=== PATIENT | female | born 1965 | race Caucasian/White ===

== ENCOUNTER 2019-11-16 08:52 | Day surgery (SDC) | payer MEDICAID ==
[~2019-11-16 08:52] MED LIST: Lactated Ringers 1,000 ML IV SCH; Lidocaine 1%/Sod Bicarbonate in NS 8.4% 1 ML Syringe IDERM PRN; Midazolam 1 MG/ML 2 ML SDV ONE; Propofol 200 MG/20 ML SDV ONE; Sodium Chloride 0.9% 10 ML Syringe FLUSH PRN
--- NOTE | 2019-11-16 10:07 | PCM.PREANE ---
Preanesthetic Assessment - Anesthesia/Transfusion/Family Hx Anesthesia History: Prior Anesthesia Without Reaction Family History of Anesthesia Reaction: No Transfusion History: No Prior Transfusion(s) - Review of Systems General: No Symptoms, Other (Perincious anemia) Pulmonary: No Symptoms Cardiovascular: No Symptoms Gastrointestinal: Other (s/p gastric bypass 2004, GERD) Neurological: No Symptoms Other: Reports: Depression - Physical Assessment NPO Status Date: 11/15/19 NPO Status Time: 23:30 Vital Signs: Last Vital Signs Temp 36.3 C 11/16/19 09:00 Pulse 55 L 11/16/19 09:00 Resp 16 11/16/19 09:00 BP 124/84 11/16/19 09:00 Pulse Ox 97 11/16/19 09:00 Height: 1.54 m Weight: 94.801 kg ASA Class: 2 Mental Status: Alert & Oriented x3 Airway Class: Mallampati = 2 Dentition: Reports: Normal Dentition Thyro-Mental Finger Breadths: 3 Mouth Opening Finger Breadths: 3 ROM/Head Extension: Full Lungs: Clear to Auscultation, Normal Respiratory Effort Cardiovascular: Regular Rate, Regular Rhythm - Allergies Allergies/Adverse Reactions: Allergies Allergy/AdvReac Type Severity Reaction Status Date / Time aspirin Allergy syncope/diz Verified 11/16/19 09:29 ziness - Blood Blood Available: No Product(s) Available: None - Anesthesia Plan Pre-Op Medication Ordered: None - Acknowledgements Anesthesia Type Planned: MAC Pt an Appropriate Candidate for the Planned Anesthesia: Yes Alternatives and Risks of Anesthesia Discussed w Pt/Guardian: Yes Pt/Guardian Understands and Agrees with Anesthesia Plan: Yes PreAnesthesia Questionnaire Other Hematologic History: history of pernicious anemia 2009 - Past Surgical History Other Musculoskeletal Surgeries/Procedures:: right elbow surgery, left achilles tendon repair - HOME MEDS Home Medications: Home Meds Calcium Carbonate [Calcium] 600 mg PO DAILY 10/31/15 [History] Escitalopram [Lexapro] 20 mg PO DAILY 10/31/15 [History] Lactobacillus Acidophilus [Acidophilus] 1 tab PO DAILY 10/31/15 [History] Loratadine [Claritin] 1 tab PO DAILY 10/31/15 [History] Omeprazole 20 mg PO DAILY 10/31/15 [History] Sennosides/Docusate Sodium [Stool Softener-Laxative] 2 tab PO DAILY 10/31/15 [ History] Vit B12/Intrins Fact/Fa Cmb #2 [Intrinsi [id number]] 1 tab PO DAILY 10/31/15 [ History] busPIRone [Buspar] 15 mg PO BID 10/31/15 [History] Mv-Min/Iron/Folic/Calcium/Vitk [Women's Multivitamin Tablet] 1 tab PO DAILY [History] - CURRENT (IN HOUSE) MEDS Current Meds: Current Medications Lactated Ringer's (Ringers, Lactated) 1,000 mls @ 125 mls/hr IV ASDIRECTED [facility]BY Stop: 11/16/19 23:00 Last Admin: 11/16/19 09:15 Dose: 125 mls/hr Lidocaine/Sodium Bicarbonate (Buffered Lidocaine 1% In Ns 8.4%) 0.25 ml IDERM ONETIME PRN PRN Reason: Prior to IV Start Stop: 11/16/19 18:00 Last Admin: 11/16/19 09:15 Dose: 0.25 ml Sodium Chloride (Saline Flush) 10 ml FLUSH ASDIRECTED PRN PRN Reason: Keep Vein Open Stop: 11/16/19 18:00 Discontinued Medications Midazolam HCl (Versed 1 Mg/Ml) Confirm Administered Dose 2 mg .ROUTE .STK-MED ONE Stop: 11/16/19 08:12 Propofol (Diprivan 20 Ml) Confirm Administered Dose 400 mg .ROUTE .STK-MED ONE Stop: 11/16/19 08:12
--- NOTE | 2019-11-16 11:00 | PCM48HPAN ---
Post Anesthesia Note - EVALUATION WITHIN 48HRS OF ANESTHETIC Vital Signs in Normal Range: Yes Patient Participated in Evaluation: Yes Respiratory Function Stable: Yes Airway Patent: Yes Cardiovascular Function Stable: Yes Hydration Status Stable: Yes Pain Control Satisfactory: Yes Nausea and Vomiting Control Satisfactory: Yes Mental Status Recovered: Yes Vital Signs: Last Vital Signs Temp 36.3 C 11/16/19 09:00 Pulse 55 L 11/16/19 09:00 Resp 16 11/16/19 09:00 BP 124/84 11/16/19 09:00 Pulse Ox 97 11/16/19 09:00
--- NOTE | 2019-11-16 12:06 | PROC ---
DATE OF OPERATION: 11/16/2019 SURGEON: Ninfa Sampson MD PREOPERATIVE DIAGNOSIS: Need for screening colonoscopy for high-risk patient. POSTOPERATIVE DIAGNOSES: Grade 2 internal hemorrhoids and colonic mucosal granularity. OPERATION PERFORMED: Colonoscopy with biopsy. ESTIMATED BLOOD LOSS: Minimal. COMPLICATIONS: None immediate. ANESTHESIA: Monitored anesthesia care. INDICATIONS AND CONSENT: The patient is a 54-year-old female who presented to my clinic for evaluation for colonoscopy. The patient had prior colonoscopy many years ago for hematochezia, but this has resolved. She did not have any abdominal pain, any change in bowel habits. I evaluated the patient for colonoscopy and she was a candidate for a screening colonoscopy. She had a brother who was diagnosed with colon cancer, unsure what age. Therefore, the patient is at elevated risk for colon cancer. Because of this, we proceeded with colonoscopy. Prior to going to colonoscopy, we discussed risks, benefits, and alternatives. Risks discussed including perforation and bleeding. The patient agreed to proceed with procedure. Informed consent was obtained. DESCRIPTION OF PROCEDURE: The patient was taken to the procedure room, placed in left lateral decubitus position following induction of monitored anesthesia care. A time-out was performed and then procedure was started. We started with doing a perianal exam. There was no lesions that were noted. Digital rectal exam was performed. Sphincter tone was normal. There was a hemorrhoidal complex in the left lateral anal position. Then, the colonoscope was inserted, advanced all the way to the cecum. The appendiceal orifice and the ileocecal valve were photographed. The prep was good. Then, carefully and methodically, the scope was withdrawn to visualize the entirety of the colonic wall. There was extensive granularity through the entirety of the colon from the cecum all the way to the rectum. This was more consistent with chronic stimulant laxative use, but there were no polyps or no other lesions. Because of this granularity, I took biopsies in the ascending colon with cold forceps for pathology examination. Then, on retroflexion, there was some grade 2 hemorrhoids, but there were no stigmata of bleeding. Then, at this point, air was suctioned out from the colon and the colonoscope was withdrawn. PLAN: Plan is for the patient to stop taking the stimulant laxative and try osmotic laxative and see if that will yield similar results. The patient will be discharged home today and the patient will follow up with primary care as needed. I recommended the patient to return for another colonoscopy in 5 years. MMANJALI /[id number]
[2019-11-16 14:00] VITALS: BP 143/78; PULSE 50
== END 2019-11-16 11:53 | disposition home or self-care (01) ==
LOC: JD.SDS 08:52
PROVIDERS: ATTEND Surgery
DX: Z12.11 Encounter for screening for malignant neoplasm of colon (principal); K64.1 Second degree hemorrhoids; K21.9 Gastro-esophageal reflux disease without esophagitis; K63.89 Other specified diseases of intestine; F32.9 Major depressive disorder, single episode, unspecified; E66.9 Obesity, unspecified; Z80.0 Family history of malignant neoplasm of digestive organs; Z98.84 Bariatric surgery status; Z79.899 Other long term (current) drug therapy; Z88.6 Allergy status to analgesic agent
CPT/HCPCS: 45380; J2250; J2704; J7120; 00812

== ENCOUNTER 2019-12-24 06:01 | Inpatient (IN) | payer MEDICAID ==
[~2019-12-24 06:01] MED LIST changes: -Midazolam 1 MG/ML 2 ML SDV ONE; -Propofol 200 MG/20 ML SDV ONE
[2019-12-24] MEDS ORDERED: oxyCODONE ER 10 MG TAB.ER PO SCH (06:15)
[2019-12-24] MEDS ORDERED: Acetaminophen 325 MG Tab PO SCH (06:15)
[2019-12-24] MEDS ORDERED: Pregabalin 25 MG Cap PO SCH (06:15)
--- NOTE | 2019-12-24 06:32 | PCM.PREANE ---
Preanesthetic Assessment - Procedure Proposed Procedure: Left TKR - Anesthesia/Transfusion/Family Hx Anesthesia History: Prior Anesthesia Without Reaction Transfusion History: Prior Transfusion Without Reaction - Review of Systems General: No Symptoms Pulmonary: No Symptoms Cardiovascular: No Symptoms Gastrointestinal: No Symptoms Neurological: No Symptoms Other: Reports: None - Physical Assessment ASA Class: 2 Mental Status: Alert & Oriented x3 Airway Class: Mallampati = 1 Dentition: Reports: Normal Dentition Thyro-Mental Finger Breadths: 3 Mouth Opening Finger Breadths: 4 ROM/Head Extension: Full Lungs: Clear to Auscultation, Normal Respiratory Effort Cardiovascular: Regular Rate, Regular Rhythm - Allergies Allergies/Adverse Reactions: Allergies Allergy/AdvReac Type Severity Reaction Status Date / Time aspirin Allergy syncope/diz Verified 12/23/19 15:04 ziness - Acknowledgements Anesthesia Type Planned: General Anesthesia, Spinal, Regional Block Pt an Appropriate Candidate for the Planned Anesthesia: Yes Alternatives and Risks of Anesthesia Discussed w Pt/Guardian: Yes Pt/Guardian Understands and Agrees with Anesthesia Plan: Yes PreAnesthesia Questionnaire Cardiovascular History: Reports: None Respiratory History: Reports: None Genitourinary History: Reports: None 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: Reports: Musculoskeletal History: Reports: Other (See Below) Other Musculoskeletal History: left knee meniscus tear Neurological History: Reports: None Psychiatric History: Reports: Depression Endocrine/Metabolic History: Reports: None Hematologic History: Reports: Anemia Other Hematologic History: history of pernicious anemia 2008 Immunologic History: Reports: None Oncologic (Cancer) History: Reports: None Dermatologic History: Reports: None - Past Surgical History Head Surgeries/Procedures: Reports: None HEENT Surgical History: Reports: Tonsillectomy Cardiovascular Surgical History: Reports: None Respiratory Surgical History: Reports: None GI Surgical History: Reports: Bariatric Procedure, Colonoscopy Female Surgical History: Reports: Section, Hysterectomy Male Surgical History: Reports: None Endocrine Surgical History: Reports: None Neurological Surgical History: Reports: None Other Musculoskeletal Surgeries/Procedures:: right elbow surgery, left achilles tendon repair, left meniscus repair x 2, bilateral carpal tunnel release Oncologic Surgical History: Reports: None Dermatological Surgical History: Reports: None - SUBSTANCE USE Smoking Status *Q: Never Smoker Second Hand Smoke Exposure: No Recreational Drug Use History: No - HOME MEDS Home Medications: Home Meds Calcium Carbonate [Calcium] 600 mg PO DAILY 10/31/15 [History] Escitalopram [Lexapro] 20 mg PO DAILY 10/31/15 [History] Lactobacillus Acidophilus [Acidophilus] 1 tab PO DAILY 10/31/15 [History] Loratadine [Claritin] 1 tab PO DAILY 10/31/15 [History] Omeprazole 20 mg PO DAILY 10/31/15 [History] busPIRone [Buspar] 15 mg PO BID 10/31/15 [History] Mv-Min/Iron/Folic/Calcium/Vitk [Women's Multivitamin Tablet] 1 tab PO DAILY [History] Cholecalciferol (Vitamin D3) [Vitamin D3] 5,000 unit PO DAILY 12/23/19 [History] Meloxicam 15 mg PO DAILY 12/23/19 [History] Vitamin B Complex [B Complex] 1 tab PO DAILY 12/23/19 [History] - CURRENT (IN HOUSE) MEDS Current Meds: Current Medications Acetaminophen (Tylenol) 975 mg PO ONETIME [facility] Stop: 12/24/19 12:15 Lactated Ringer's (Ringers, Lactated) 1,000 mls @ 125 mls/hr IV ASDIRECTED [facility] Lidocaine/Sodium Bicarbonate (Buffered Lidocaine 1% In Ns 8.4%) 0.25 ml IDERM ONETIME PRN PRN Reason: Prior to IV Start Oxycodone HCl (Oxycontin) 10 mg PO ONETIME [facility] Stop: 12/24/19 12:15 Pregabalin (Lyrica) 50 mg PO ONETIME [facility] Stop: 12/24/19 12:15 Sodium Chloride (Saline Flush) 10 ml FLUSH ASDIRECTED PRN PRN Reason: Keep Vein Open Discontinued Medications Bupivacaine HCl (Sensorcaine-Mpf 0.25%) Confirm Administered Dose 30 ml .ROUTE .STK-MED ONE Stop: 12/24/19 06:15 Cefazolin Sodium (Ancef) Confirm Administered Dose 2 gm .ROUTE .STK-MED ONE Stop: 12/24/19 06:15 Iodine (Iodine 2% Mild Tincture) Confirm Administered Dose 30 ml .ROUTE .STK- MED ONE Stop: 12/24/19 06:15 Tranexamic Acid (Cyklokapron) Confirm Administered Dose 1,000 mg .ROUTE .STK- MED ONE Stop: 12/24/19 06:15 Vancomycin HCl (Vancomycin) Confirm Administered Dose 1 gm .ROUTE .STKidizen-Lien Enforcement ONE Stop: 12/24/19 06:15
[2019-12-24] MEDS ORDERED: Propofol 200 MG/20 ML SDV ONE (06:39)
[2019-12-24] MEDS ORDERED: fentaNYL 100 MCG/2 ML SDV ONE (06:39)
[2019-12-24] MEDS ORDERED: Midazolam 1 MG/ML 2 ML SDV ONE (06:39)
[2019-12-24] MEDS ORDERED: Lidocaine 1% 4 ML ONE (06:41)
[2019-12-24] MEDS ORDERED: Ondansetron 4 MG/2 ML SDV IVPUSH PRN (06:50)
[2019-12-24] MEDS ORDERED: Cyclobenzaprine 10 MG Tab PO PRN (06:50)
[2019-12-24] MEDS ORDERED: Naloxone 0.4 MG/ML SDV IVPUSH PRN (06:50)
[2019-12-24] MEDS ORDERED: Morphine 2 MG/ML Syringe IVPUSH PRN (06:50)
[2019-12-24] MEDS ORDERED: ceFAZolin 1 GM Vial ONE (07:18)
[2019-12-24] MEDS ORDERED: ePHEDrine/Normal Saline 25 MG/5 ML Syringe ONE (07:22)
[2019-12-24] MEDS: ceFAZolin 1 GM Vial ONE ×2 (07:24→08:10)
[2019-12-24] MEDS: Bupivacaine 0.25% 10 ML SDV ONE ×2 (07:24→08:15)
[2019-12-24] MEDS: Iodine/Sodium Iodide 2% Tincture 30 ML Bottle ONE ×2 (07:25→08:09)
[2019-12-24] MEDS ORDERED: Lactated Ringers 1,000 ML ONE (07:27)
[2019-12-24] MEDS: Morphine 8 MG, EPINEPHrine 0.3 MG, Cefuroxime 750 MG, Ketorolac 30 MG, Sodium Chloride ... PRN ×10 (07:27→08:14)
[2019-12-24] MEDS: Vancomycin 1 GM SDV ONE ×2 (07:29→08:18)
[2019-12-24] MEDS ORDERED: Ropivacaine 0.5% 5 MG/ML 30 ML SDV ONE (08:59)
[2019-12-24] MEDS ORDERED: Ketorolac 15 MG/ML SDV IVPUSH PRN (10:30)
--- NOTE | 2019-12-24 10:51 | CR ---
Left knee: AP and lateral views left knee were obtained. Comparison: Previous left knee study of 07/11/18. Left knee prosthesis is noted. Components are aligned. Underlying bony structures are intact. Soft tissue air is noted from the surgical procedure. Impression: 1. Satisfactory postop radiographic appearance of recently placed left knee prosthesis. Diagnostic code #2 This report was dictated in [place] Standard Time
--- NOTE | 2019-12-24 11:05 | PCM.OPNOTE ---
- General Post-Op/Procedure Note Date of Surgery/Procedure: 12/24/19 Operative Procedure(s): left total knee arthroplasty Pre Op Diagnosis: left knee osteoarthrosis Post-Op Diagnosis: Same Anesthesia Technique: Local, MAC, Spinal Primary Surgeon: Juancarlos Philippe Anesthesia Provider: Surinder Babcock Material Movers: Gisselle De Luna Material Movers: Debora Graham in mLs: 5 Complications: None Condition: Good Free Text/Narrative:: 4 femur 3 tibia 9mm 29x9
[2019-12-24] MEDS: Acetaminophen/oxyCODONE 325-5 MG Tab PO PRN ×3 (11:11→20:12)
--- NOTE | 2019-12-24 11:35 | OR ---
DATE OF OPERATION: 12/24/2019 SURGEON: Juancarlos Philippe MD OPERATION PERFORMED: Left total knee arthroplasty. PREOPERATIVE DIAGNOSIS: Left knee osteoarthrosis. POSTOPERATIVE DIAGNOSIS: Left knee osteoarthrosis. ANESTHESIA: Local MAC with spinal. ANESTHESIA PROVIDER: Rick Vallecillo. SNOWSPORT INSTRUCTOR: Gisselle De Luna PA-C, and Debora Graham LPN. ESTIMATED BLOOD LOSS: 5 mL. COMPLICATIONS: None. CONDITION: Stable. IMPLANTS: 1. Burdett size 4 cemented PS femur. 2. Maegan size 3 cemented universal tibial base plate. 3. Burdett size 3 9 mm PS X3 polyethylene insert. 4. Maegan size 29 x 9 mm cemented asymmetric patella. DESCRIPTION OF PROCEDURE: The patient was identified in the preop holding area. Proper site was marked and identified by the surgeon. The patient was taken back to the operating theater. After adequate anesthesia, the patient's left lower extremity had a nonsterile tourniquet applied and it was sterilely prepped and draped in the usual sterile fashion. OR time-out was performed. The patient received 2 g IV Ancef. At this time, the left lower extremity was exsanguinated. Tourniquet was insufflated to 300 mmHg. Standard medial parapatellar incision was made. Medial parapatellar arthrotomy was created. Deep fibers of the MCL were raised and anterior fat pad was resected. At this time, attention was turned to the patella. Patella measured 22, it was resected to a 13 for a 29 x 9 mm patella. Drill holes were then drilled and found to be in adequate position. The drill was then drilled in the distal femur and the intramedullary distal femoral cutting guide was then placed. 8 mm was resected off the distal femur and was found to be an adequate resection. Sizing guide was placed. It was found to be a size 4 cemented PS femur that was shown on the implant record at the beginning of this dictation. The drill holes were drilled for the epicondylar axis using Whitesides line and epicondyles as reference. At this time, the 4-in-1 cutting block was placed. An anterior posterior and anterior and posterior chamfer cuts were then completed. Box cut was completed at this time. Attention was turned to the tibia. The posterior medial lateral retractors were placed. The extramedullary tibial guide was placed. It was placed in the old footprint of the ACL. It was aligned with the center of the ankle and 0 degrees of slope, 9 mm was then resected off the unaffected side. There was found to be an acceptable reduction. At this time, posterior osteophytes were removed along with medial and lateral meniscus. A trial implant was placed with a correct sized tibia that was mentioned at the beginning of the dictation. A Maegan size 3 9 mm PS X3 polyethylene insert was then placed. The patient's knee was brought through range of motion. The patella was tracking centrally and was stable to varus and valgus stress. Alignment was found to be roughly at 0 degrees. The tibia was stamped and drilled in proper rotation. The universal tibial base plate was impacted in place. Next, the Maegan size 4 cemented PS femur impacted into place and the Maegan size 3 9 mm PS X3 polyethylene insert was placed. The patient's knee was brought into full extension. The patella was then cemented in place at this time. One liter dilute Betadine solution was irrigated through the knee along with 3 L of pulse lavage irrigation with Ancef. Periarticular injection was then completed. The patient's knee was brought through a range of motion. Once the cement had time to set up and it was found to be stable to varus valgus stress, the patella was tracking centrally with full range of motion. At this time, a #2 barbed suture was used for closure of the medial parapatellar arthrotomy. Topical tranexamic acid was placed. 2-0 Vicryl was used subcutaneously, Prineo was used for the skin. The patient tolerated the procedure well and was sent to the PACU in stable condition. MMODAL /[id number] NAYA
[2019-12-24] MEDS: ceFAZolin 2 GM in Premix Bag 1 BAG IV SCH ×2 (14:24→21:28)
[2019-12-24] MEDS ORDERED: Lactated Ringers 1,000 ML IV ONE (15:23)
--- NOTE | 2019-12-24 15:25 | PCM.CONS ---
H&P History of Present Illness - General Date of Service: 12/24/19 Admit Problem/Dx: Admission Diagnosis/Problem Admission Diagnosis/Problem Osteoarthritis of knee Source of Information: Patient, Old Records, Provider, RN, RN Notes Reviewed History Limitations: Reports: No Limitations - History of Present Illness Initial Comments - Free Text/Narative: Alicia Bains is a 54 yo female patient of Dr. Philippe who is post-operative day 0 of left TKA. Hospital medicine was consulted for post-operative medical care of post-operative hypotension. At this time she is resting in bed. Pain is controlled. She did report some dizziness, nausea, and lightheadedness when standing up to working with therapies and was noted to be hypotensive. She states this was nearly a syncopal episode. She denies any current chest pain, shortness of breath, palpitations, nausea, or vomiting. She carries a history of : HLD, pernicious anemia, obesity, gastric bypass in 2004, depression. She was never a smoker. She is a full code. Her primary care provider is Dr. Florez. 2 Pain Score (Numeric/FACES): 2 - Related Data Allergies/Adverse Reactions: Allergies Allergy/AdvReac Type Severity Reaction Status Date / Time aspirin Allergy syncope/diz Verified 12/24/19 10:50 ziness Home Medications: Home Meds Calcium Carbonate [Calcium] 600 mg PO DAILY 10/31/15 [History] Escitalopram [Lexapro] 20 mg PO DAILY 10/31/15 [History] Lactobacillus Acidophilus [Acidophilus] 1 tab PO DAILY 10/31/15 [History] Loratadine [Claritin] 1 tab PO DAILY 10/31/15 [History] Omeprazole 20 mg PO DAILY 10/31/15 [History] busPIRone [Buspar] 15 mg PO BID 10/31/15 [History] Mv-Min/Iron/Folic/Calcium/Vitk [Women's Multivitamin Tablet] 1 tab PO DAILY [History] Cholecalciferol (Vitamin D3) [Vitamin D3] 5,000 unit PO DAILY 12/23/19 [History] Meloxicam 15 mg PO DAILY 12/23/19 [History] Vitamin B Complex [B Complex] 1 tab PO DAILY 12/23/19 [History] Past Medical History Cardiovascular History: Reports: None Respiratory History: Reports: None Genitourinary History: Reports: None [employer] FILLING History: Reports: Musculoskeletal History: Reports: Other (See Below) Other Musculoskeletal History: left knee meniscus tear Neurological History: Reports: None Psychiatric History: Reports: Depression Endocrine/Metabolic History: Reports: None Hematologic History: Reports: Anemia Other Hematologic History: history of pernicious anemia 2008 Immunologic History: Reports: None Oncologic (Cancer) History: Reports: None Dermatologic History: Reports: None - Past Surgical History Head Surgeries/Procedures: Reports: None HEENT Surgical History: Reports: Tonsillectomy Cardiovascular Surgical History: Reports: None Respiratory Surgical History: Reports: None GI Surgical History: Reports: Bariatric Procedure, Colonoscopy Female Surgical History: Reports: Section, Hysterectomy Endocrine Surgical History: Reports: None Neurological Surgical History: Reports: None Other Musculoskeletal Surgeries/Procedures:: right elbow surgery, left achilles tendon repair, left meniscus repair x 2, bilateral carpal tunnel release Oncologic Surgical History: Reports: None Dermatological Surgical History: Reports: None Social & Family History - Tobacco Use Smoking Status *Q: Never Smoker Second Hand Smoke Exposure: No - Caffeine Use Caffeine Use: Reports: None - Recreational Drug Use Recreational Drug Use: No H&P Review of Systems - Review of Systems: Review Of Systems: See Below General: Reports: No Symptoms. Denies: Fever, Chills HEENT: Reports: No Symptoms. Denies: Headaches, Sore Throat Pulmonary: Reports: No Symptoms. Denies: Shortness of Breath, Wheezing, Cough, Sputum Cardiovascular: Reports: No Symptoms. Denies: Chest Pain, Palpitations, Edema, Lightheadedness (earlier, none now ) Gastrointestinal: Reports: No Symptoms. Denies: Abdominal Pain, Constipation, Diarrhea, Nausea (none currently ), Vomiting Genitourinary: Reports: No Symptoms. Denies: Pain Musculoskeletal: Reports: Leg Pain Skin: Reports: No Symptoms. Denies: Cyanosis Psychiatric: Reports: No Symptoms. Denies: Confusion Neurological: Reports: Difficulty Walking, Gait Disturbance. Denies: Pre- Existing Deficit, Syncope (near syncope earlier) Hematologic/Lymphatic: Reports: No Symptoms Immunologic: Reports: No Symptoms Exam - Exam Exam: See Below - Vital Signs Vital Signs: Last Vital Signs Temp 97.2 F 12/24/19 09:53 Pulse 75 12/24/19 14:01 Resp 16 12/24/19 09:53 BP 106/49 L 12/24/19 14:16 Pulse Ox 99 12/24/19 14:01 Weight: 206 lb - Exam Quality Assessment: DVT Prophylaxis. No: Supplemental Oxygen, Urinary Catheter General: Alert, Oriented, Cooperative. No: Mild Distress HEENT: Conjunctiva Clear, EACs Clear, Hearing Intact, Mucosa Moist & [place], Nares Patent, Posterior Pharynx Clear, PERRLA Neck: Supple, Trachea Midline Lungs: Clear to Auscultation, Normal Respiratory Effort Cardiovascular: Regular Rhythm, Bradycardia (Chronic ) GI/Abdominal Exam: Normal Bowel Sounds, Soft, Non-Tender, No Distention, No Abnormal Bruit (Female) Exam: Deferred Rectal (Female) Exam: Deferred Back Exam: Normal Inspection, Full Range of Motion Extremities: Normal Capillary Refill, Leg Pain, Limited Range of Motion, Other ( Bandage in place on left leg. Bandage is dry and intact. Cooling pack in place.) Skin: Warm, Dry, Intact Neurological: Cranial Nerves Intact (grossly ) Neuro Extensive - Mental Status: Alert, Oriented x3, Normal Mood/Affect Sepsis Event Note - Evaluation Sepsis Screening Result: No Definite Risk - Focused Exam Vital Signs: Vital Signs Temp Temp Pulse Pulse Resp BP BP 12/24/19 14:16 106/49 L 12/24/19 14:01 75 99/54 L 12/24/19 13:47 54 L 98/54 L 12/24/19 13:32 54 L 101/57 L 12/24/19 13:16 54 L 93/53 L 12/24/19 13:01 55 L 94/55 L 12/24/19 12:47 60 99/53 L 12/24/19 12:32 63 112/61 12/24/19 12:17 60 100/68 12/24/19 12:01 57 L 108/64 12/24/19 11:47 59 L 104/60 12/24/19 11:32 58 L 103/63 12/24/19 11:01 56 L 103/67 12/24/19 10:55 56 L 102/57 L 12/24/19 10:40 12/24/19 09:53 97.2 F 63 16 99/63 12/24/19 09:44 97.9 F 10 L 102/59 L 12/24/19 09:30 10 L 105/56 L 12/24/19 09:15 12 108/60 12/24/19 09:00 10 L 102/60 12/24/19 08:51 98.2 F 16 101/62 12/24/19 07:13 97.9 F 64 16 120/54 L Pulse Ox Pulse Ox 12/24/19 14:16 12/24/19 14:01 99 12/24/19 13:47 99 12/24/19 13:32 98 12/24/19 13:16 99 12/24/19 13:01 98 12/24/19 12:47 78 L 12/24/19 12:32 92 L 12/24/19 12:17 98 12/24/19 12:01 97 12/24/19 11:47 95 12/24/19 11:32 100 12/24/19 11:01 98 12/24/19 10:55 96 12/24/19 10:40 95 12/24/19 09:53 99 12/24/19 09:44 92 L 12/24/19 09:30 93 L 12/24/19 09:15 95 12/24/19 09:00 99 12/24/19 08:51 97 97 12/24/19 07:13 93 L Date Exam was Performed: 12/24/19 Time Exam was Performed: 15:49 Consult PN Assessment/Plan POD#: 0 Procedures: Procedures COLONOSCOPY AND BIOPSY (11/16/19) ELECTROCARDIOGRAM TRACING (11/01/15) EMERGENCY DEPT VISIT (06/29/18) KNEE ARTHROSCOPY/SURGERY (11/01/15) KNEE ARTHROSCOPY/SURGERY (11/01/15) MEDICAL NUTRITION INDIV IN (09/10/19) MR-STAPH DNA AMP PROBE (12/09/19) MRI JNT OF LWR EXTRE W/O DYE (07/18/15) PHYSICAL PERFORMANCE TEST (02/28/16) PT EVALUATION (01/26/16) WORK HARDENING (02/21/16) X-RAY EXAM KNEE 4 OR MORE (06/29/18) X-RAY EXAM OF KNEE 3 (07/27/15) X-RAY EXAM OF KNEES (07/11/18) (1) S/P total knee arthroplasty SNOMED Code(s): 5769655130748, 167893649, 2305280232626 Code(s): Z96.659 - PRESENCE OF UNSPECIFIED ARTIFICIAL KNEE JOINT Priority: High Current Visit: Yes Qualifiers: Laterality: left Qualified Code(s): Z96.652 - Presence of left artificial knee joint (2) Osteoarthritis SNOMED Code(s): 578675180 Code(s): M19.90 - UNSPECIFIED OSTEOARTHRITIS, UNSPECIFIED SITE Priority: High Current Visit: Yes Qualifiers: Osteoarthritis location: knee Osteoarthritis type: primary Laterality: left Qualified Code(s): M17.12 - Unilateral primary osteoarthritis, left knee (3) HLD (hyperlipidemia) SNOMED Code(s): 32958442 Code(s): E78.5 - HYPERLIPIDEMIA, UNSPECIFIED Priority: Low Current Visit : No Qualifiers: Hyperlipidemia type: unspecified Qualified Code(s): E78.5 - Hyperlipidemia , unspecified (4) Pernicious anemia SNOMED Code(s): 16115067 Code(s): D51.0 - VITAMIN B12 DEFIC ANEMIA DUE TO INTRINSIC FACTOR DEFICIENCY Priority: Medium Current Visit: No (5) Obesity SNOMED Code(s): 619398145, 704748369 Code(s): E66.9 - OBESITY, UNSPECIFIED Priority: Medium Current Visit: No Qualifiers: Obesity type: unspecified obesity type Obesity classification: adult class 3 (BMI >= 40) Serious obesity comorbidity presence: unspecified whether serious comorbidity present Body mass index: BMI 40.0-44.9 Qualified Code(s) : E66.01 - Morbid (severe) obesity due to excess calories; Z68.41 - Body mass index (BMI) 40.0-44.9, adult (6) Status post gastric surgery SNOMED Code(s): 679243893 Code(s): Z98.890 - OTHER SPECIFIED POSTPROCEDURAL STATES Priority: Medium Current Visit: No (7) Depression SNOMED Code(s): 85916426 Code(s): F32.9 - MAJOR DEPRESSIVE DISORDER, SINGLE EPISODE, UNSPECIFIED Priority: Low Current Visit: No Qualifiers: Depression Type: other depression Qualified Code(s): F32.89 - Other specified depressive episodes (8) Postoperative hypotension SNOMED Code(s): 260966747 Code(s): I95.89 - OTHER HYPOTENSION Priority: High Current Visit: Yes (9) Bradycardia SNOMED Code(s): 10266108 Code(s): R00.1 - BRADYCARDIA, UNSPECIFIED Priority: Medium Current Visit : Yes Problem List Initiated/Reviewed/Updated: Yes My Orders Last 24 Hours: My Active Orders 12/24/19 15:22 Patient Status [ADT] Routine 12/24/19 15:23 Lactated Ringers [Ringers, Lactated] 1,000 ml IV .BOLUS Plan: I/P: Acute: S/P left total knee arthroplasty - post-operative day 0 -DVT prophylaxis and pain management per primary care team -PT/OT -IS/RT -Monitor oxygen saturation -Titrate oxygen as needed -Home medications reviewed -Vital signs stable -Monitor labs -Pre-operative Hgb was 13.1 -Pre-operative GFR was 78 -Pre-operative BUN was 24 -Pre-operative EKG showed sinus bradycardia at 56 BPM Osteoarthritis of left knee -Pain management per primary care team Post-operative hypotension -BP noted to be 93/53 after working with therapies -Symptomatic - lightheaded, dizzy, nauseated, reports near syncope -History of bradycardia -IV fluids as ordered -EBL 5ml -Nursing to monitor vital signs and check orthostatics after fluid bolus. Chronic: HLD pernicious anemia obesity gastric bypass in 2004 depression Plan: Telemetry CM for discharge planning GI prophylaxis Home medications as indicated Other orders as listed above Routine AM labs She is a full code. Her PCP is Dr. Florez Thank you for allowing us to participate in the care of this patient!! Requesting Provider: Dr. Philippe Date Consult Requested: 12/24/19 Reason for Consult: Post-oepratie hypotension Patient History Reviewed: Yes Admission H&P Reviewed: Yes Notified Requestor: Yes
--- NOTE | 2019-12-24 15:32 | PCM.SN ---
- Free Text/Narrative Note: Left selective femoral nerve block at the adductor canal for post-procedure pain control under US guidance requested by Dr. Philippe. Time Out: 902 Start: 902 End: 910 Chart reviewed. Consent signed. Questions answered. Appropriate monitors applied. Time out performed. Left mid-shaft femur identified with ultrasound, scanning medially of femur, the femoral artery in the adductor canal visualized , and the femoral nerve located laterally to the artery. The skin was prepped lateral to the ultrasound probe with chlorahexadine times two. The 21ga 4 insulated block needle was inserted under direct ultrasound guidance into the adductor canal. 25mL of 0.5% ropivacaine with 1:200,000 epinephrine was injected circumferentially around the nerve with intermittent negative aspiration noted. Patient tolerated the procedure well. Sterile technique noted along with sterile gloves, mask, and sterile probe cover. See picture on progress note and vital signs on nurses notes. Block completed in PACU. Surinder Babcock CRNA
[2019-12-24] MEDS ORDERED: Magnesium Hydroxide 400 MG/5 ML Susp 30 ML Cup PO PRN (21:00)
[2019-12-24] MEDS ORDERED: Sennosides 8.6 MG Tab PO PRN (21:00)
[2019-12-24] MEDS ORDERED: Famotidine 20 MG Tab PO SCH (21:00)
[2019-12-24] MEDS: Docusate Sodium 100 MG Cap PO SCH (21:24)
[2019-12-24] MEDS: busPIRone 15 MG Tab PO SCH (21:24)
[2019-12-25] MEDS: Acetaminophen/oxyCODONE 325-5 MG Tab PO PRN ×3 (02:38→13:11)
[2019-12-25] MEDS: ceFAZolin 2 GM in Premix Bag 1 BAG IV SCH (06:26)
--- NOTE | 2019-12-25 06:48 | PCM.CONSN ---
- General Info Date of Service: 12/25/19 Admission Dx/Problem (Free Text): Admission Diagnosis/Problem Admission Diagnosis/Problem Osteoarthritis of knee Functional Status: Reports: Pain Controlled, Tolerating Diet, Ambulating, Urinating, Incentive Spirometry. Denies: New Symptoms - Review of Systems General: Reports: No Symptoms. Denies: Fever, Chills HEENT: Reports: No Symptoms. Denies: Headaches, Sore Throat Pulmonary: Reports: No Symptoms. Denies: Shortness of Breath, Pleuritic Chest Pain, Cough, Wheezing Cardiovascular: Reports: No Symptoms. Denies: Chest Pain, Palpitations, Edema, Lightheadedness Gastrointestinal: Reports: No Symptoms. Denies: Abdominal Pain, Constipation, Diarrhea, Nausea, Vomiting Genitourinary: Reports: No Symptoms. Denies: Pain Musculoskeletal: Reports: Leg Pain Skin: Reports: No Symptoms. Denies: Cyanosis Neurological: Reports: Difficulty Walking, Gait Disturbance. Denies: Confusion , Pre-Existing Deficit Psychiatric: Reports: No Symptoms - Patient Data Vitals - Most Recent: Last Vital Signs Temp 97.2 F 12/25/19 02:49 Pulse 54 L 12/25/19 02:49 Resp 16 12/25/19 02:49 BP 92/47 L 12/25/19 02:49 Pulse Ox 84 L 12/25/19 02:49 Orthostatic Blood Pressure [ 78/61 Standing] Orthostatic Blood Pressure [ 102/56 Sitting] Orthostatic Blood Pressure [ 111/60 Supine] Weight - Most Recent: 217 lb I&O - Last 24 Hours: Intake & Output 12/24/19 12/24/19 12/25/19 14:59 22:59 06:59 Intake Total 850 Output Total 1600 Balance -750 Lab Results Last 24 Hours: Laboratory Results - last 24 hr 12/25/19 12/25/19 Range/Units 05:00 05:00 WBC 5.71 (3.98-10.04) K/mm3 RBC 3.60 L (3.98-5.22) M/mm3 Hgb 10.6 L (11.2-15.7) gm/dl Hct 32.9 L (34.1-44.9) % MCV 91.4 (79.4-94.8) fl MCH 29.4 (25.6-32.2) pg MCHC 32.2 (32.2-35.5) g/dl RDW Std Deviation 42.6 (36.4-46.3) fL Plt Count 183 (182-369) K/mm3 MPV 11.0 (9.4-12.3) fl Sodium 139 (136-145) mEq/L Potassium 4.1 (3.5-5.1) mEq/L Chloride 105 (98-107) mEq/L Carbon Dioxide 28 (21-32) mEq/L Anion Gap 10.1 (5-15) BUN 17 (7-18) mg/dL Creatinine 0.6 (0.55-1.02) mg/dL Est Cr Clr Drug Dosing 76.10 mL/min Estimated GFR (MDRD) > 60 (>60) mL/min BUN/Creatinine Ratio 28.3 H (14-18) Glucose 101 (74-106) mg/dL Calcium 8.7 (8.5-10.1) mg/dL Total Bilirubin 0.7 (0.2-1.0) mg/dL AST 66 H (15-37) U/L ALT 62 H (14-59) U/L Alkaline Phosphatase 69 (46-116) U/L Total Protein 5.8 L (6.4-8.2) g/dl Albumin 3.1 L (3.4-5.0) g/dl Globulin 2.7 gm/dL Albumin/Globulin Ratio 1.2 (1-2) Med Orders - Current: Current Medications Bisacodyl (Dulcolax) 5 mg PO DAILY PRN PRN Reason: Constipation Buspirone HCl (Buspar) 15 mg PO BID [facility] Last Admin: 12/24/19 21:24 Dose: 15 mg Calcium Carbonate/Glycine (Calcium Carbonate) 600 mg PO DAILY [facility] Cholecalciferol (Vitamin D3) 5,000 unit PO DAILY [facility] Citalopram Hydrobromide (Celexa) 40 mg PO DAILY [facility] Cyclobenzaprine HCl (Flexeril) 10 mg PO TID PRN PRN Reason: Spasms Last Admin: 12/24/19 14:31 Dose: 10 mg Docusate Sodium (Colace) 100 mg PO BID [facility] Last Admin: 12/24/19 21:24 Dose: 100 mg Cefazolin Sodium/Dextrose 2 gm (/ Premix) 50 mls @ 100 mls/hr IV Q8H [facility] Stop: 12/25/19 06:59 Last Admin: 12/25/19 06:26 Dose: 100 mls/hr Ketorolac Tromethamine (Toradol) 15 mg IVPUSH Q6H PRN PRN Reason: Pain Last Admin: 12/24/19 22:45 Dose: 15 mg Loratadine (Claritin) 10 mg PO DAILY [facility] Magnesium Hydroxide (Milk Of Magnesia) 30 ml PO BID PRN PRN Reason: Constipation Morphine Sulfate (Morphine) 2 mg IVPUSH Q2H PRN PRN Reason: Breakthrough Pain Naloxone HCl (Narcan) 0.1 mg IVPUSH Q5M PRN PRN Reason: Oversedation Ondansetron HCl (Zofran) 4 mg IVPUSH Q6H PRN PRN Reason: Nausea/Vomiting Oxycodone/Acetaminophen (Percocet 325-5 Mg) 1 - 2 tab PO Q4H PRN PRN Reason: Pain Last Admin: 12/25/19 02:38 Dose: 2 tab Pantoprazole Sodium (Protonix) 40 mg PO DAILY [facility] Rivaroxaban (Xarelto) 10 mg PO DAILY [facility] Saccharomyces Boulardii (Florastor) 250 mg PO DAILY [facility] Senna (Senna) 8.6 mg PO BID PRN PRN Reason: Constipation Vitamin B Complex/Vitamin C (Super B With Vitamin C) 1 cap PO DAILY [facility] Discontinued Medications Acetaminophen (Tylenol) 975 mg PO ONETIME [facility] Stop: 12/24/19 12:15 Last Admin: 12/24/19 06:33 Dose: 975 mg Bupivacaine HCl (Sensorcaine-Mpf 0.25%) Confirm Administered Dose 30 ml .ROUTE .STK-MED ONE Stop: 12/24/19 06:15 Last Admin: 12/24/19 08:15 Dose: 30 ml Cefazolin Sodium (Ancef) Confirm Administered Dose 2 gm .ROUTE .STK-MED ONE Stop: 12/24/19 06:15 Last Admin: 12/24/19 08:10 Dose: 2 gm Cefazolin Sodium (Ancef) Confirm Administered Dose 2 gm .ROUTE .STK-MED ONE Stop: 12/24/19 07:19 Morphine Sulfate 8 mg/Epinephrine HCl 0.3 mg/Cefuroxime Sodium 750 mg/Ketorolac Tromethamine 30 mg/Sodium Chloride 27.9 ml 0 mg .XX ASDIRECTED PRN PRN Reason: Other Stop: 12/24/19 12:00 Last Admin: 12/24/19 08:14 Dose: 788.3 mg Ephedrine Sulfate (Ephedrine In Ns) Confirm Administered Dose 25 mg .ROUTE .STK- MED ONE Stop: 12/24/19 07:23 Famotidine (Pepcid) 20 mg PO Q12H [facility] Fentanyl (Sublimaze) Confirm Administered Dose 100 mcg .ROUTE .STK-MED ONE Stop: 12/24/19 06:40 Lactated Ringer's (Ringers, Lactated) 1,000 mls @ 125 mls/hr IV ASDIRECTED [facility]BY Stop: 12/24/19 23:00 Last Admin: 12/24/19 06:34 Dose: 125 mls/hr Lidocaine HCl (Xylocaine-Mpf 1%) Confirm Administered Dose 4 mls @ as directed .ROUTE .STK-MED ONE Stop: 12/24/19 06:42 Lactated Ringer's (Ringers, Lactated) Confirm Administered Dose 1,000 mls @ as directed .ROUTE .STK-MED ONE Stop: 12/24/19 07:28 Lactated Ringer's (Ringers, Lactated) 1,000 mls @ 999 mls/hr IV .BOLUS ONE Stop: 12/24/19 16:23 Last Admin: 12/24/19 15:36 Dose: 999 mls/hr Iodine (Iodine 2% Mild Tincture) Confirm Administered Dose 30 ml .ROUTE .STK- MED ONE Stop: 12/24/19 06:15 Last Admin: 12/24/19 08:09 Dose: 18 ml Lidocaine/Sodium Bicarbonate (Buffered Lidocaine 1% In Ns 8.4%) 0.25 ml IDERM ONETIME PRN PRN Reason: Prior to IV Start Last Admin: 12/24/19 06:33 Dose: 0.25 ml Midazolam HCl (Versed 1 Mg/Ml) Confirm Administered Dose 2 mg .ROUTE .STK-MED ONE Stop: 12/24/19 06:40 Oxycodone HCl (Oxycontin) 10 mg PO ONETIME [facility] Stop: 12/24/19 12:15 Last Admin: 12/24/19 06:33 Dose: 10 mg Pregabalin (Lyrica) 50 mg PO ONETIME [facility] Stop: 12/24/19 12:15 Last Admin: 12/24/19 06:33 Dose: 50 mg Propofol (Diprivan 20 Ml) Confirm Administered Dose 600 mg .ROUTE .STK-MED ONE Stop: 12/24/19 06:40 Ropivacaine (Naropin 0.5%) Confirm Administered Dose 30 ml .ROUTE .STK-MED ONE Stop: 12/24/19 09:00 Sodium Chloride (Saline Flush) 10 ml FLUSH ASDIRECTED PRN PRN Reason: Keep Vein Open Stop: 12/24/19 18:00 Tranexamic Acid (Cyklokapron) Confirm Administered Dose 1,000 mg .ROUTE .STK- MED ONE Stop: 12/24/19 06:15 Last Admin: 12/24/19 08:23 Dose: 1,000 mg Vancomycin HCl (Vancomycin) Confirm Administered Dose 1 gm .ROUTE .STK-MED ONE Stop: 12/24/19 06:15 Last Admin: 12/24/19 08:18 Dose: 1 gm - Exam Quality Assessment: DVT Prophylaxis General: Alert, Oriented, Cooperative, No Acute Distress HEENT: Pupils Equal, Pupils Reactive, Mucous Membr. Moist/[place] Neck: Supple, Trachea Midline Lungs: Clear to Auscultation, Normal Respiratory Effort Cardiovascular: Regular Rate, Regular Rhythm. No: Bradycardia GI/Abdominal Exam: Normal Bowel Sounds, Soft, Non-Tender, No Distention, No Abnormal Bruit (Female) Exam: Deferred Back Exam: Normal Inspection, Full Range of Motion Extremities: Normal Capillary Refill, Leg Pain, Limited Range of Motion, Other ( Bandage in place on right leg. Cooling pack in place. ) Peripheral Pulses: 2+: Radial (L), Radial (R), Dorsalis Pedis (L), Dorsalis Pedis (R) Skin: Warm, Dry, Intact Wound/Incisions: Dressing Dry and Intact Neurological: No New Focal Deficit Psy/Mental Status: Alert, Normal Affect, Normal Mood Sepsis Event Note - Evaluation Sepsis Screening Result: No Definite Risk - Focused Exam Vital Signs: Vital Signs Temp Pulse Resp BP Pulse Ox 12/25/19 02:49 97.2 F 54 L 16 92/47 L 84 L 12/24/19 22:41 97.2 F 55 L 16 113/61 98 12/24/19 21:15 55 L 16 102/53 L 98 Date Exam was Performed: 12/25/19 Time Exam was Performed: 11:03 Consult PN Assessment/Plan POD#: 1 Procedures: Procedures COLONOSCOPY AND BIOPSY (11/16/19) ELECTROCARDIOGRAM TRACING (11/01/15) EMERGENCY DEPT VISIT (06/29/18) KNEE ARTHROSCOPY/SURGERY (11/01/15) KNEE ARTHROSCOPY/SURGERY (11/01/15) MEDICAL NUTRITION INDIV IN (09/10/19) MR-STAPH DNA AMP PROBE (12/09/19) MRI JNT OF LWR EXTRE W/O DYE (07/18/15) PHYSICAL PERFORMANCE TEST (02/28/16) PT EVALUATION (01/26/16) WORK HARDENING (02/21/16) X-RAY EXAM KNEE 4 OR MORE (06/29/18) X-RAY EXAM OF KNEE 3 (07/27/15) X-RAY EXAM OF KNEES (07/11/18) (1) S/P total knee arthroplasty SNOMED Code(s): 3198015538424, 351697643, 5715072217633 Code(s): Z96.659 - PRESENCE OF UNSPECIFIED ARTIFICIAL KNEE JOINT Priority: High Current Visit: Yes Qualifiers: Laterality: left Qualified Code(s): Z96.652 - Presence of left artificial knee joint (2) Osteoarthritis SNOMED Code(s): 592320765 Code(s): M19.90 - UNSPECIFIED OSTEOARTHRITIS, UNSPECIFIED SITE Priority: High Current Visit: Yes Qualifiers: Osteoarthritis location: knee Osteoarthritis type: primary Laterality: left Qualified Code(s): M17.12 - Unilateral primary osteoarthritis, left knee (3) HLD (hyperlipidemia) SNOMED Code(s): 98529125 Code(s): E78.5 - HYPERLIPIDEMIA, UNSPECIFIED Priority: Low Current Visit : No Qualifiers: Hyperlipidemia type: unspecified Qualified Code(s): E78.5 - Hyperlipidemia , unspecified (4) Pernicious anemia SNOMED Code(s): 97016221 Code(s): D51.0 - VITAMIN B12 DEFIC ANEMIA DUE TO INTRINSIC FACTOR DEFICIENCY Priority: Medium Current Visit: No (5) Obesity SNOMED Code(s): 332658979, 542209335 Code(s): E66.9 - OBESITY, UNSPECIFIED Priority: Medium Current Visit: No Qualifiers: Obesity type: unspecified obesity type Obesity classification: adult class 3 (BMI >= 40) Serious obesity comorbidity presence: unspecified whether serious comorbidity present Body mass index: BMI 40.0-44.9 Qualified Code(s) : E66.01 - Morbid (severe) obesity due to excess calories; Z68.41 - Body mass index (BMI) 40.0-44.9, adult (6) Status post gastric surgery SNOMED Code(s): 060176966 Code(s): Z98.890 - OTHER SPECIFIED POSTPROCEDURAL STATES Priority: Medium Current Visit: No (7) Depression SNOMED Code(s): 00498127 Code(s): F32.9 - MAJOR DEPRESSIVE DISORDER, SINGLE EPISODE, UNSPECIFIED Priority: Low Current Visit: No Qualifiers: Depression Type: other depression Qualified Code(s): F32.89 - Other specified depressive episodes (8) Postoperative hypotension SNOMED Code(s): 642715377 Code(s): I95.89 - OTHER HYPOTENSION Priority: High Current Visit: Yes (9) Bradycardia SNOMED Code(s): 89276681 Code(s): R00.1 - BRADYCARDIA, UNSPECIFIED Priority: Medium Current Visit : Yes Problem List Initiated/Reviewed/Updated: Yes My Orders Last 24 Hours: My Active Orders 12/24/19 15:22 Patient Status [ADT] Routine Plan: I/P: Acute: S/P left total knee arthroplasty - post-operative day 1 -DVT prophylaxis and pain management per primary care team -PT/OT -IS/RT -Monitor oxygen saturation -Titrate oxygen as needed -Home medications reviewed -Vital signs stable -Monitor labs -Pre-operative Hgb was 13.1; Now 10.6 -Pre-operative GFR was 78; Now >60 -Pre-operative BUN was 24; Now 17 -Pre-operative EKG showed sinus bradycardia at 56 BPM Osteoarthritis of left knee -Pain management per primary care team Post-operative hypotension -BP noted to be 93/53 after working with therapies -Symptomatic - lightheaded, dizzy, nauseated, reports near syncope; Asymptomatic now and feeling good -History of bradycardia -IV fluids as ordered -EBL 5ml -Nursing to monitor vital signs and check orthostatics after fluid bolus. - was orthostatic Chronic: HLD pernicious anemia obesity gastric bypass in 2004 depression Plan: Telemetry CM for discharge planning GI prophylaxis Home medications as indicated Other orders as listed above Routine AM labs She is a full code. Her PCP is Dr. Florez From a hospitalist standpoint Alicia is doing pretty well. She has been up ambulating and working with therapies. She is off of oxygen and has urinated. She has been eating. Labs and vital signs remain stable. She was very hypotensive and symptomatic after surgery but this has resolved and she felt good working with therapies. She has been utilizing her IS. She was encouraged to stay hydrated. She is cleared for discharge pending primary team and PT/OT agreement. Thank you for allowing us to participate in the care of this patient!!
--- NOTE | 2019-12-25 07:40 | PCM48HPAN ---
Post Anesthesia Note - EVALUATION WITHIN 48HRS OF ANESTHETIC Vital Signs in Normal Range: Yes Patient Participated in Evaluation: Yes Respiratory Function Stable: Yes Airway Patent: Yes Cardiovascular Function Stable: Yes Hydration Status Stable: Yes Pain Control Satisfactory: Yes Nausea and Vomiting Control Satisfactory: Yes Mental Status Recovered: Yes Vital Signs: Last Vital Signs Temp 36.2 C 12/25/19 02:49 Pulse 54 L 12/25/19 02:49 Resp 16 12/25/19 02:49 BP 92/47 L 12/25/19 02:49 Pulse Ox 98 12/25/19 07:00 Orthostatic Blood Pressure [ 78/61 Standing] Orthostatic Blood Pressure [ 102/56 Sitting] Orthostatic Blood Pressure [ 111/60 Supine] - COMMENTS/OBSERVATIONS Free Text/Narrative:: no anesthesia complications noted
[2019-12-25] MEDS ORDERED: Lactated Ringers 1,000 ML IV SCH (08:15)
[2019-12-25] MEDS ORDERED: Citalopram 20 MG Tab PO SCH (09:00)
[2019-12-25] MEDS ORDERED: Loratadine 10 MG Tab PO SCH (09:00)
[2019-12-25] MEDS ORDERED: Cholecalciferol (Vitamin D3) 5,000 UNIT Tab PO SCH (09:00)
[2019-12-25] MEDS ORDERED: Vitamin B Complex With Vitamin C Cap PO SCH (09:00)
[2019-12-25] MEDS ORDERED: Bisacodyl 5 MG Tab PO PRN (09:00)
[2019-12-25] MEDS ORDERED: Saccharomyces Boulardii (Probiotic) 250 MG Cap PO SCH (09:00)
[2019-12-25] MEDS ORDERED: Rivaroxaban 10 MG Tab PO SCH (09:00)
[2019-12-25] MEDS ORDERED: Pantoprazole 40 MG Tab.CR PO SCH (09:00)
[2019-12-25] MEDS ORDERED: Calcium Carbonate 600 MG Tab PO SCH (09:00)
[2019-12-25] MEDS: busPIRone 15 MG Tab PO SCH (09:38)
[2019-12-25] MEDS: Docusate Sodium 100 MG Cap PO SCH (09:38)
--- NOTE | 2019-12-25 10:04 | PCM.SURGPN ---
- General Info Date of Service: 12/25/19 POD#: 1 Functional Status: Reports: Pain Controlled, Tolerating Diet, Ambulating, Urinating, Incentive Spirometry, Other (The pt was noted to have hypotension post-operatively. A Hospitalist consult was obtained and BPs have improved.) - Patient Data Vitals - Most Recent: Last Vital Signs Temp 98.8 F 12/25/19 07:42 Pulse 70 12/25/19 07:42 Resp 12 12/25/19 07:42 BP 102/55 L 12/25/19 07:42 Pulse Ox 96 12/25/19 07:42 Orthostatic Blood Pressure [ 78/61 Standing] Orthostatic Blood Pressure [ 102/56 Sitting] Orthostatic Blood Pressure [ 111/60 Supine] Weight - Most Recent: 217 lb I&O - Last 24 Hours: Intake & Output 12/24/19 12/25/19 12/25/19 22:59 06:59 14:59 Intake Total 850 Output Total 1600 Balance -750 Lab Results Last 24 Hrs: Laboratory Results - last 24 hr 12/25/19 12/25/19 Range/Units 05:00 05:00 WBC 5.71 (3.98-10.04) K/mm3 RBC 3.60 L (3.98-5.22) M/mm3 Hgb 10.6 L (11.2-15.7) gm/dl Hct 32.9 L (34.1-44.9) % MCV 91.4 (79.4-94.8) fl MCH 29.4 (25.6-32.2) pg MCHC 32.2 (32.2-35.5) g/dl RDW Std Deviation 42.6 (36.4-46.3) fL Plt Count 183 (182-369) K/mm3 MPV 11.0 (9.4-12.3) fl Sodium 139 (136-145) mEq/L Potassium 4.1 (3.5-5.1) mEq/L Chloride 105 (98-107) mEq/L Carbon Dioxide 28 (21-32) mEq/L Anion Gap 10.1 (5-15) BUN 17 (7-18) mg/dL Creatinine 0.6 (0.55-1.02) mg/dL Est Cr Clr Drug Dosing 76.10 mL/min Estimated GFR (MDRD) > 60 (>60) mL/min BUN/Creatinine Ratio 28.3 H (14-18) Glucose 101 (74-106) mg/dL Calcium 8.7 (8.5-10.1) mg/dL Total Bilirubin 0.7 (0.2-1.0) mg/dL AST 66 H (15-37) U/L ALT 62 H (14-59) U/L Alkaline Phosphatase 69 (46-116) U/L Total Protein 5.8 L (6.4-8.2) g/dl Albumin 3.1 L (3.4-5.0) g/dl Globulin 2.7 gm/dL Albumin/Globulin Ratio 1.2 (1-2) Med Orders - Current: Current Medications Bisacodyl (Dulcolax) 5 mg PO DAILY PRN PRN Reason: Constipation Buspirone HCl (Buspar) 15 mg PO BID [facility] Last Admin: 12/25/19 09:38 Dose: 15 mg Calcium Carbonate/Glycine (Calcium Carbonate) 600 mg PO DAILY [facility] Last Admin: 12/25/19 09:38 Dose: 600 mg Cholecalciferol (Vitamin D3) 5,000 unit PO DAILY [facility] Last Admin: 12/25/19 09:38 Dose: 5,000 unit Citalopram Hydrobromide (Celexa) 40 mg PO DAILY [facility] Last Admin: 12/25/19 09:38 Dose: 40 mg Cyclobenzaprine HCl (Flexeril) 10 mg PO TID PRN PRN Reason: Spasms Last Admin: 12/24/19 14:31 Dose: 10 mg Docusate Sodium (Colace) 100 mg PO BID [facility] Last Admin: 12/25/19 09:38 Dose: 100 mg Lactated Ringer's (Ringers, Lactated) 1,000 mls @ 150 mls/hr IV ASDIRECTED [facility] Last Admin: 12/25/19 09:40 Dose: 150 mls/hr Ketorolac Tromethamine (Toradol) 15 mg IVPUSH Q6H PRN PRN Reason: Pain Last Admin: 12/24/19 22:45 Dose: 15 mg Loratadine (Claritin) 10 mg PO DAILY [facility] Last Admin: 12/25/19 09:38 Dose: 10 mg Magnesium Hydroxide (Milk Of Magnesia) 30 ml PO BID PRN PRN Reason: Constipation Morphine Sulfate (Morphine) 2 mg IVPUSH Q2H PRN PRN Reason: Breakthrough Pain Naloxone HCl (Narcan) 0.1 mg IVPUSH Q5M PRN PRN Reason: Oversedation Ondansetron HCl (Zofran) 4 mg IVPUSH Q6H PRN PRN Reason: Nausea/Vomiting Oxycodone/Acetaminophen (Percocet 325-5 Mg) 1 - 2 tab PO Q4H PRN PRN Reason: Pain Last Admin: 12/25/19 07:50 Dose: 2 tab Pantoprazole Sodium (Protonix) 40 mg PO DAILY [facility] Last Admin: 12/25/19 09:38 Dose: 40 mg Rivaroxaban (Xarelto) 10 mg PO DAILY [facility] Last Admin: 12/25/19 09:38 Dose: 10 mg Saccharomyces Boulardii (Florastor) 250 mg PO DAILY [facility] Last Admin: 12/25/19 09:38 Dose: 250 mg Senna (Senna) 8.6 mg PO BID PRN PRN Reason: Constipation Last Admin: 12/25/19 09:38 Dose: 8.6 mg Vitamin B Complex/Vitamin C (Super B With Vitamin C) 1 cap PO DAILY [facility] Last Admin: 12/25/19 09:37 Dose: 1 cap Discontinued Medications Acetaminophen (Tylenol) 975 mg PO ONETIME [facility] Stop: 12/24/19 12:15 Last Admin: 12/24/19 06:33 Dose: 975 mg Bupivacaine HCl (Sensorcaine-Mpf 0.25%) Confirm Administered Dose 30 ml .ROUTE .STK-MED ONE Stop: 12/24/19 06:15 Last Admin: 12/24/19 08:15 Dose: 30 ml Cefazolin Sodium (Ancef) Confirm Administered Dose 2 gm .ROUTE .STK-MED ONE Stop: 12/24/19 06:15 Last Admin: 12/24/19 08:10 Dose: 2 gm Cefazolin Sodium (Ancef) Confirm Administered Dose 2 gm .ROUTE .STK-MED ONE Stop: 12/24/19 07:19 Morphine Sulfate 8 mg/Epinephrine HCl 0.3 mg/Cefuroxime Sodium 750 mg/Ketorolac Tromethamine 30 mg/Sodium Chloride 27.9 ml 0 mg .XX ASDIRECTED PRN PRN Reason: Other Stop: 12/24/19 12:00 Last Admin: 12/24/19 08:14 Dose: 788.3 mg Ephedrine Sulfate (Ephedrine In Ns) Confirm Administered Dose 25 mg .ROUTE .STK- MED ONE Stop: 12/24/19 07:23 Famotidine (Pepcid) 20 mg PO Q12H [facility] Fentanyl (Sublimaze) Confirm Administered Dose 100 mcg .ROUTE .STK-MED ONE Stop: 12/24/19 06:40 Lactated Ringer's (Ringers, Lactated) 1,000 mls @ 125 mls/hr IV ASDIRECTED [facility] Stop: 12/24/19 23:00 Last Admin: 12/24/19 06:34 Dose: 125 mls/hr Lidocaine HCl (Xylocaine-Mpf 1%) Confirm Administered Dose 4 mls @ as directed .ROUTE .STK-MED ONE Stop: 12/24/19 06:42 Cefazolin Sodium/Dextrose 2 gm (/ Premix) 50 mls @ 100 mls/hr IV Q8H [facility] Stop: 12/25/19 06:59 Last Admin: 12/25/19 06:26 Dose: 100 mls/hr Lactated Ringer's (Ringers, Lactated) Confirm Administered Dose 1,000 mls @ as directed .ROUTE .STK-MED ONE Stop: 12/24/19 07:28 Lactated Ringer's (Ringers, Lactated) 1,000 mls @ 999 mls/hr IV .[facility] ONE Stop: 12/24/19 16:23 Last Admin: 12/24/19 15:36 Dose: 999 mls/hr Iodine (Iodine 2% Mild Tincture) Confirm Administered Dose 30 ml .ROUTE .STK- MED ONE Stop: 12/24/19 06:15 Last Admin: 12/24/19 08:09 Dose: 18 ml Lidocaine/Sodium Bicarbonate (Buffered Lidocaine 1% In Ns 8.4%) 0.25 ml IDERM ONETIME PRN PRN Reason: Prior to IV Start Last Admin: 12/24/19 06:33 Dose: 0.25 ml Midazolam HCl (Versed 1 Mg/Ml) Confirm Administered Dose 2 mg .ROUTE .STK-MED ONE Stop: 12/24/19 06:40 Oxycodone HCl (Oxycontin) 10 mg PO ONETIME [facility] Stop: 12/24/19 12:15 Last Admin: 12/24/19 06:33 Dose: 10 mg Pregabalin (Lyrica) 50 mg PO ONETIME [facility] Stop: 12/24/19 12:15 Last Admin: 12/24/19 06:33 Dose: 50 mg Propofol (Diprivan 20 Ml) Confirm Administered Dose 600 mg .ROUTE .STK-MED ONE Stop: 12/24/19 06:40 Ropivacaine (Naropin 0.5%) Confirm Administered Dose 30 ml .ROUTE .STK-MED ONE Stop: 12/24/19 09:00 Sodium Chloride (Saline Flush) 10 ml FLUSH ASDIRECTED PRN PRN Reason: Keep Vein Open Stop: 12/24/19 18:00 Tranexamic Acid (Cyklokapron) Confirm Administered Dose 1,000 mg .ROUTE .STK- MED ONE Stop: 12/24/19 06:15 Last Admin: 12/24/19 08:23 Dose: 1,000 mg Vancomycin HCl (Vancomycin) Confirm Administered Dose 1 gm .ROUTE .STK-MED ONE Stop: 12/24/19 06:15 Last Admin: 12/24/19 08:18 Dose: 1 gm - Exam Wound/Incisions: Dressing Dry and Intact General: Alert, Cooperative, No Acute Distress Lungs: Normal Respiratory Effort Extremities: Other (NVS intact for BLE. Micki's negative for BLE.) Sepsis Event Note - Evaluation Sepsis Screening Result: No Definite Risk - Focused Exam Vital Signs: Vital Signs Temp Pulse Resp BP Pulse Ox Pulse Ox 12/25/19 07:42 98.8 F 70 12 102/55 L 96 12/25/19 07:00 98 12/25/19 02:49 97.2 F 54 L 16 92/47 L 84 L 12/24/19 22:41 97.2 F 55 L 16 113/61 98 Date Exam was Performed: 12/25/19 Time Exam was Performed: 10:02 - Problem List Review Problem List Initiated/Reviewed/Updated: Yes - My Orders Last 24 Hours: Active Orders 24 hr Category Date Time Status Patient Status [ADT] Routine ADT 12/24/19 15:22 Active Ready for Discharge [RC] PER UNIT ROUTINE Care 12/25/19 08:30 Active Consult to Physician [CONS] Routine Cons 12/24/19 15:16 Active Regular Diet [DIET] Diet 12/24/19 Lunch Active Calcium Carbonate Med 12/25/19 09:00 Active 600 mg PO DAILY Cholecalciferol (Vitamin D3) [Vitamin D3] Med 12/25/19 09:00 Active 5,000 unit PO DAILY Citalopram [Celexa] Med 12/25/19 09:00 Active 40 mg PO DAILY Docusate Sodium [Colace] Med 12/24/19 21:00 Active 100 mg PO BID Ketorolac [Toradol] Med 12/24/19 10:30 Active 15 mg IVPUSH Q6H PRN Lactated Ringers [Ringers, Lactated] 1,000 ml Med 12/25/19 08:15 Active IV ASDIRECTED Loratadine [Claritin] Med 12/25/19 09:00 Active 10 mg PO DAILY Magnesium Hydroxide [Milk of Magnesia] Med 12/24/19 21:00 Active 30 ml PO BID PRN Pantoprazole [ProTONIX] Med 12/25/19 09:00 Active 40 mg PO DAILY Rivaroxaban [Xarelto] Med 12/25/19 09:00 Active 10 mg PO DAILY Saccharomyces Boulardii [Florastor] Med 12/25/19 09:00 Active 250 mg PO DAILY Sennosides [Senna] Med 12/24/19 21:00 Active 8.6 mg PO BID PRN Vitamin B Complex with C [Super B With Vitamin C] Med 12/25/19 09:00 Active 1 cap PO DAILY bisacodyL [Dulcolax] Med 12/25/19 09:00 Active 5 mg PO DAILY PRN busPIRone [Buspar] Med 12/24/19 21:00 Active 15 mg PO BID Medication Orders Bisacodyl (Dulcolax) 5 mg PO DAILY PRN PRN Reason: Constipation Buspirone HCl (Buspar) 15 mg PO BID [facility] Last Admin: 12/25/19 09:38 Dose: 15 mg Admin: 12/24/19 21:24 Dose: 15 mg Calcium Carbonate/Glycine (Calcium Carbonate) 600 mg PO DAILY [facility] Last Admin: 12/25/19 09:38 Dose: 600 mg Cholecalciferol (Vitamin D3) 5,000 unit PO DAILY [facility] Last Admin: 12/25/19 09:38 Dose: 5,000 unit Citalopram Hydrobromide (Celexa) 40 mg PO DAILY [facility] Last Admin: 12/25/19 09:38 Dose: 40 mg Cyclobenzaprine HCl (Flexeril) 10 mg PO TID PRN PRN Reason: Spasms Last Admin: 12/24/19 14:31 Dose: 10 mg Docusate Sodium (Colace) 100 mg PO BID [facility] Last Admin: 12/25/19 09:38 Dose: 100 mg Admin: 12/24/19 21:24 Dose: 100 mg Lactated Ringer's (Ringers, Lactated) 1,000 mls @ 150 mls/hr IV ASDIRECTED [facility] Last Admin: 12/25/19 09:40 Dose: 150 mls/hr Ketorolac Tromethamine (Toradol) 15 mg IVPUSH Q6H PRN PRN Reason: Pain Last Admin: 12/24/19 22:45 Dose: 15 mg Loratadine (Claritin) 10 mg PO DAILY [facility] Last Admin: 12/25/19 09:38 Dose: 10 mg Magnesium Hydroxide (Milk Of Magnesia) 30 ml PO BID PRN PRN Reason: Constipation Morphine Sulfate (Morphine) 2 mg IVPUSH Q2H PRN PRN Reason: Breakthrough Pain Naloxone HCl (Narcan) 0.1 mg IVPUSH Q5M PRN PRN Reason: Oversedation Ondansetron HCl (Zofran) 4 mg IVPUSH Q6H PRN PRN Reason: Nausea/Vomiting Oxycodone/Acetaminophen (Percocet 325-5 Mg) 1 - 2 tab PO Q4H PRN PRN Reason: Pain Last Admin: 12/25/19 07:50 Dose: 2 tab Admin: 12/25/19 02:38 Dose: 2 tab Admin: 12/24/19 20:12 Dose: 2 tab Admin: 12/24/19 15:42 Dose: 2 tab Admin: 12/24/19 11:11 Dose: 2 tab Pantoprazole Sodium (Protonix) 40 mg PO DAILY [facility] Last Admin: 12/25/19 09:38 Dose: 40 mg Rivaroxaban (Xarelto) 10 mg PO DAILY [facility] Last Admin: 12/25/19 09:38 Dose: 10 mg Saccharomyces Boulardii (Florastor) 250 mg PO DAILY [facility] Last Admin: 12/25/19 09:38 Dose: 250 mg Senna (Senna) 8.6 mg PO BID PRN PRN Reason: Constipation Last Admin: 12/25/19 09:38 Dose: 8.6 mg Vitamin B Complex/Vitamin C (Super B With Vitamin C) 1 cap PO DAILY [facility] Last Admin: 12/25/19 09:37 Dose: 1 cap - Assessment Assessment (Free Text/Narrative):: POD#1 - left TKA - Plan Plan (Free Text/Narrative):: 1. Xarelto (hx gastric bypass), frequent mobility, TEDs for VTE prophylaxis. 2. Discharge to home today if cleared by Hospitalist service and therapies. 3. Outpatient physical therapy. 4. Hgb 10.6 today. The pt's case was discussed with Dr. Philippe.
[2019-12-25 12:31] VITALS: BP 114/73; PULSE 68
--- NOTE | 2019-12-28 13:55 | PCM.DCSUM1 ---
Discharge Summary - Hospital Course Brief History: Alicia is a 54 yo female who underwent left TKA with Dr. Philippe on 12-24-2019. The procedure was completed under spinal anesthesia with MAC. The pt tolerated the procedure well and was admitted to the Medical-Surgical Unit. The pt received Ancef dee-operatively. She participated in P.T. and O.T. and progressed well. She was allowed to WBAT and used a FWW for mobility. The pt' s surgical wound was dressed with a Mepilex dressing and remained clean and dry. On POD#1, the pt was started on Xarelto 10mg PO daily for VTE prophylaxis. The pt used TEDs and SCDs also. On POD#1, the pt's hemoglobin was 10.6. Medical management was provided by the Hospitalist service and the pt 's hospital course was remarkable for post-operative hypotension. On POD#1, the pt was deemed appropriate for discharge to home. - Discharge Data Discharge Date: 12/25/19 Discharge Disposition: Home, Self-Care 01 Condition: Good - Referral to Home Health Primary Care Physician: Rodolfo Florez MD - Patient Summary/Data Operative Procedure(s) Performed: left total knee arthroplasty Consults: Consultations 12/24/19 06:50 OT Evaluation and Treatment [CONS] Routine PT Evaluation and Treatment [CONS] Routine 12/24/19 15:16 Consult to Physician [CONS] Routine - Patient Instructions Diet: Usual Diet as Tolerated Activity: Apply Ice, As Tolerated, Elevate Extremity, Full Weight Bearing Driving: Do Not Drive Showering/Bathing: May Shower Wound/Incision Care: Keep Operative Site/Wound Site Clean and Dry, Do NOT Change Dressing Notify Provider of: Fever, Increased Pain, Swelling and Redness, Drainage, Nausea and/or Vomiting Other/Special Instructions: Please get up and moving around EVERY HOUR while awake. This helps to prevent blood clots. Please use your walker and have help with mobility as needed. Take a short walk in your home every hour while awake. Please take the Xarelto blood thinner medication daily as directed. At home, please complete the exercises that you learned during the Hospital stay. Schedule for physical therapy. Use the pain medication as needed. The medication may cause drowsiness and constipation. Contact your primary care provider for instructions if you are constipated. You may use a stool softener like docusate sodium or Colace 100mg twice daily and/or a laxative like Miralax daily for constipation. Increase your water and fiber intake while you are using the pain medication. Discontinue use of the pain medication as soon as able. Please do not use other medications that may cause drowsiness (other pain medications, anxiety pills, cold medications, sleeping pills, etc) while using the prescription pain medication. Do not use alcohol while using the pain medication. You liver tests were mildly elevated after your surgery. This is not uncommon. Please schedule an appointment with your primary care provider to recheck the liver tests after surgery to ensure improvements are noted. Wear the PAULO hose during the day and you may remove these at night. Elevate the limb to decrease swelling. Place ice to the area often. Place a towel between your skin and the blue pad. Use the incentive spirometer often. Take deep breaths throughout the day. Please keep the dressing in place until follow-up. Notify the Clinic if the dressing becomes saturated. Increase your protein intake while you are healing. If you have diabetes, please closely monitor your blood sugars and notify your primary care provider with abnormal values. Elevated blood sugars increases the risk of infection. Call the Clinic with questions or concerns - [phone]. - Discharge Plan *PRESCRIPTION DRUG MONITORING PROGRAM REVIEWED*: No *COPY OF PRESCRIPTION DRUG MONITORING REPORT IN PATIENT KATHY: No Prescriptions/Med Rec: Cyclobenzaprine [Flexeril] 10 mg PO BID PRN #40 tablet PRN Reason: Spasms oxyCODONE 5 - 10 mg PO Q4H PRN #60 tab PRN Reason: Pain Rivaroxaban [Xarelto] 10 mg PO DAILY #30 tablet Home Medications: Home Meds Calcium Carbonate [Calcium] 600 mg PO DAILY 10/31/15 [History] Escitalopram [Lexapro] 20 mg PO DAILY 10/31/15 [History] Lactobacillus Acidophilus [Acidophilus] 1 tab PO DAILY 10/31/15 [History] Loratadine [Claritin] 1 tab PO DAILY 10/31/15 [History] Omeprazole 20 mg PO DAILY 10/31/15 [History] busPIRone [Buspar] 15 mg PO BID 10/31/15 [History] Cholecalciferol (Vitamin D3) [Vitamin D3] 5,000 unit PO DAILY 12/23/19 [History] Vitamin B Complex [B Complex] 1 tab PO DAILY 12/23/19 [History] Cyclobenzaprine [Flexeril] 10 mg PO BID PRN #40 tablet 12/25/19 [Rx] Docusate Sodium [Colace] 100 mg PO BID cap 12/25/19 [Rx] Magnesium Hydroxide [Milk of Magnesia] 30 ml PO BID PRN cup 12/25/19 [Rx] Rivaroxaban [Xarelto] 10 mg PO DAILY #30 tablet 12/25/19 [Rx] Sennosides [Senna] 8.6 mg PO BID PRN tablet 12/25/19 [Rx] bisacodyL [Dulcolax] 5 mg PO DAILY PRN tablet 12/25/19 [Rx] oxyCODONE 5 - 10 mg PO Q4H PRN #60 tab 12/25/19 [Rx] Referrals: Gisselle De Luna PA-C [Physician Agent Producer] - 12/30/19 (Go to follow-up appointment with Gisselle De Luna as previously scheduled.) - Discharge Summary/Plan Comment DC Time >30 min.: No - Patient Data Vitals - Most Recent: Last Vital Signs Temp 99.1 F 12/25/19 11:29 Pulse 68 12/25/19 11:29 Resp 14 12/25/19 11:29 BP 114/73 12/25/19 11:29 Pulse Ox 92 L 12/25/19 11:29 Orthostatic Blood Pressure [ 78/61 Standing] Orthostatic Blood Pressure [ 102/56 Sitting] Orthostatic Blood Pressure [ 111/60 Supine] Weight - Most Recent: 217 lb Med Orders - Current: Current Medications Discontinued Medications Acetaminophen (Tylenol) 975 mg PO ONETIME [facility] Stop: 12/24/19 12:15 Last Admin: 12/24/19 06:33 Dose: 975 mg Bisacodyl (Dulcolax) 5 mg PO DAILY PRN PRN Reason: Constipation Bupivacaine HCl (Sensorcaine-Mpf 0.25%) Confirm Administered Dose 30 ml .ROUTE .STK-MED ONE Stop: 12/24/19 06:15 Last Admin: 12/24/19 08:15 Dose: 30 ml Buspirone HCl (Buspar) 15 mg PO BID [facility] Last Admin: 12/25/19 09:38 Dose: 15 mg Calcium Carbonate/Glycine (Calcium Carbonate) 600 mg PO DAILY [facility] Last Admin: 12/25/19 09:38 Dose: 600 mg Cefazolin Sodium (Ancef) Confirm Administered Dose 2 gm .ROUTE .[facility] ONE Stop: 12/24/19 06:15 Last Admin: 12/24/19 08:10 Dose: 2 gm Cefazolin Sodium (Ancef) Confirm Administered Dose [address] .[address] .[facility] ONE Stop: 12/24/19 07:19 Cholecalciferol (Vitamin D3) 5,000 unit PO DAILY [facility] Last Admin: 12/25/19 09:38 Dose: 5,000 unit Citalopram Hydrobromide (Celexa) 40 mg PO DAILY [facility] Last Admin: 12/25/19 09:38 Dose: 40 mg Morphine Sulfate 8 mg/Epinephrine HCl 0.3 mg/Cefuroxime Sodium 750 mg/Ketorolac Tromethamine 30 mg/Sodium Chloride 27.9 ml 0 mg .XX ASDIRECTED PRN PRN Reason: Other Stop: 12/24/19 12:00 Last Admin: 12/24/19 08:14 Dose: 788.3 mg Cyclobenzaprine HCl (Flexeril) 10 mg PO TID PRN PRN Reason: Spasms Last Admin: 12/24/19 14:31 Dose: 10 mg Docusate Sodium (Colace) 100 mg PO BID [facility] Last Admin: 12/25/19 09:38 Dose: 100 mg Ephedrine Sulfate (Ephedrine In Ns) Confirm Administered Dose 25 mg .ROUTE .[facility] ONE Stop: 12/24/19 07:23 Famotidine (Pepcid) 20 mg PO Q12H [facility] Fentanyl (Sublimaze) Confirm Administered Dose 100 mcg .ROUTE .[facility] ONE Stop: 12/24/19 06:40 Lactated Ringer's (Ringers, Lactated) 1,000 mls @ 125 mls/hr IV ASDIRECTED [facility] Stop: 12/24/19 23:00 Last Admin: 12/24/19 06:34 Dose: 125 mls/hr Lidocaine HCl (Xylocaine-Mpf 1%) Confirm Administered Dose 4 mls @ as directed .ROUTE .[facility] ONE Stop: 12/24/19 06:42 Cefazolin Sodium/Dextrose 2 gm (/ Premix) 50 mls @ 100 mls/hr IV Q8H [facility] Stop: 12/25/19 06:59 Last Admin: 12/25/19 06:26 Dose: 100 mls/hr Lactated Ringer's (Ringers, Lactated) Confirm Administered Dose 1,000 mls @ as directed .ROUTE .[facility] ONE Stop: 12/24/19 07:28 Lactated Ringer's (Ringers, Lactated) 1,000 mls @ 999 mls/hr IV .[facility] ONE Stop: 12/24/19 16:23 Last Admin: 12/24/19 15:36 Dose: 999 mls/hr Lactated Ringer's (Ringers, Lactated) 1,000 mls @ 150 mls/hr IV ASDIRECTED [facility] Last Admin: 12/25/19 09:40 Dose: 150 mls/hr Iodine (Iodine 2% Mild Tincture) Confirm Administered Dose 30 ml .ROUTE .[facility] ONE Stop: 12/24/19 06:15 Last Admin: 12/24/19 08:09 Dose: 18 ml Ketorolac Tromethamine (Toradol) 15 mg IVPUSH Q6H PRN PRN Reason: Pain Last Admin: 12/24/19 22:45 Dose: 15 mg Lidocaine/Sodium Bicarbonate (Buffered Lidocaine 1% In Ns 8.4%) 0.25 ml IDERM ONETIME PRN PRN Reason: Prior to IV Start Last Admin: 12/24/19 06:33 Dose: 0.25 ml Loratadine (Claritin) 10 mg PO DAILY [facility] Last Admin: 12/25/19 09:38 Dose: 10 mg Magnesium Hydroxide (Milk Of Magnesia) 30 ml PO BID PRN PRN Reason: Constipation Midazolam HCl (Versed 1 Mg/Ml) Confirm Administered Dose 2 mg .ROUTE .[facility] ONE Stop: 12/24/19 06:40 Morphine Sulfate (Morphine) 2 mg IVPUSH Q2H PRN PRN Reason: Breakthrough Pain Naloxone HCl (Narcan) 0.1 mg IVPUSH Q5M PRN PRN Reason: Oversedation Ondansetron HCl (Zofran) 4 mg IVPUSH Q6H PRN PRN Reason: Nausea/Vomiting Oxycodone HCl (Oxycontin) 10 mg PO ONETIME [facility] Stop: 12/24/19 12:15 Last Admin: 01/23/20 06:33 Dose: 10 mg Oxycodone/Acetaminophen (Percocet 325-5 Mg) 1 - 2 tab PO Q4H PRN PRN Reason: Pain Last Admin: 12/25/19 13:11 Dose: 2 tab Pantoprazole Sodium (Protonix) 40 mg PO DAILY [facility] Last Admin: 12/25/19 09:38 Dose: 40 mg Pregabalin (Lyrica) 50 mg PO ONETIME [facility] Stop: 12/24/19 12:15 Last Admin: 12/24/19 06:33 Dose: 50 mg Propofol (Diprivan 20 Ml) Confirm Administered Dose 600 mg .ROUTE .STK-MED ONE Stop: 12/24/19 06:40 Rivaroxaban (Xarelto) 10 mg PO DAILY [facility] Last Admin: 12/25/19 09:38 Dose: 10 mg Ropivacaine (Naropin 0.5%) Confirm Administered Dose 30 ml .ROUTE .STK-MED ONE Stop: 12/24/19 09:00 Saccharomyces Boulardii (Florastor) 250 mg PO DAILY [facility] Last Admin: 12/25/19 09:38 Dose: 250 mg Senna (Senna) 8.6 mg PO BID PRN PRN Reason: Constipation Last Admin: 12/25/19 09:38 Dose: 8.6 mg Sodium Chloride (Saline Flush) 10 ml FLUSH ASDIRECTED PRN PRN Reason: Keep Vein Open Stop: 12/24/19 18:00 Tranexamic Acid (Cyklokapron) Confirm Administered Dose 1,000 mg .ROUTE .STK- MED ONE Stop: 12/24/19 06:15 Last Admin: 12/24/19 08:23 Dose: 1,000 mg Vancomycin HCl (Vancomycin) Confirm Administered Dose 1 gm .ROUTE .STK-MED ONE Stop: 12/24/19 06:15 Last Admin: 12/24/19 08:18 Dose: 1 gm Vitamin B Complex/Vitamin C (Super B With Vitamin C) 1 cap PO DAILY [facility] Last Admin: 12/25/19 09:37 Dose: 1 cap
== END 2019-12-25 15:40 | disposition home or self-care (01) | DRG 470 ==
LOC: JD.MS 06:01 → EDSTATUS 11:45
PROVIDERS: ADMIT Orthopaedic Surgery; ATTEND Orthopaedic Surgery
PROC: 0SRD0J9 Replacement of Left Knee Joint with Synthetic Substitute, Cemented, Open Approach (ICD-10-PCS; principal; 2019-12-24)
DX: M17.12 Unilateral primary osteoarthritis, left knee (principal); Z68.41 Body mass index [BMI] 40.0-44.9, adult; D51.0 Vitamin B12 deficiency anemia due to intrinsic factor deficiency; E78.5 Hyperlipidemia, unspecified; E66.01 Morbid (severe) obesity due to excess calories; I95.81 Postprocedural hypotension; F32.89 Other specified depressive episodes; R00.1 Bradycardia, unspecified; Z98.890 Other specified postprocedural states; Z90.710 Acquired absence of both cervix and uterus; Z90.89 Acquired absence of other organs; Z98.84 Bariatric surgery status; Z79.899 Other long term (current) drug therapy; Z88.6 Allergy status to analgesic agent
CPT/HCPCS: 01402; 36415; 64450; 73560-26-LT; 73560-LT; 80053; 85027; 94760; 97110-GP; 97116-GP; 97161-GP; 97165-GO; 97535-GO; A9270-GY; C1713; C1776; J0171; J0690; J0697; J1885; J2001; J2250; J2270; J2704; J2795; J3010; J3370; J3490; J7050; J7120

== ENCOUNTER 2020-02-04 06:17 | Day surgery (SDC) | payer MEDICAID ==
[2020-02-04] MEDS ORDERED: fentaNYL 100 MCG/2 ML SDV ONE ×2 (06:28→07:19)
[2020-02-04] MEDS ORDERED: Midazolam 1 MG/ML 2 ML SDV ONE (06:28)
[2020-02-04] MEDS ORDERED: Propofol 200 MG/20 ML SDV ONE (06:28)
[2020-02-04] MEDS ORDERED: Lidocaine 1% 4 ML ONE (06:29)
[2020-02-04] MEDS ORDERED: Ketamine 500 mg/10 ML MDV ONE (06:32)
[2020-02-04] MEDS ORDERED: Ketorolac 30 MG/ML SDV ONE (07:18)
--- NOTE | 2020-02-04 07:34 | PCM48HPAN ---
Post Anesthesia Note - EVALUATION WITHIN 48HRS OF ANESTHETIC Vital Signs in Normal Range: Yes Patient Participated in Evaluation: Yes Respiratory Function Stable: Yes Airway Patent: Yes Cardiovascular Function Stable: Yes Hydration Status Stable: Yes Pain Control Satisfactory: Yes Nausea and Vomiting Control Satisfactory: Yes Mental Status Recovered: Yes Vital Signs: Last Vital Signs Temp 36.4 C 02/04/20 06:20 Pulse 70 02/04/20 06:20 Resp 16 02/04/20 06:20 BP 128/74 02/04/20 06:20 Pulse Ox 96 02/04/20 06:20 - COMMENTS/OBSERVATIONS Free Text/Narrative:: no anesthesia complications noted
--- NOTE | 2020-02-04 07:34 | PCM.PREANE ---
Preanesthetic Assessment - Procedure Proposed Procedure: left knee manipulation - Anesthesia/Transfusion/Family Hx Anesthesia History: Prior Anesthesia Without Reaction Family History of Anesthesia Reaction: No Transfusion History: Prior Transfusion Without Reaction - Review of Systems General: No Symptoms Pulmonary: No Symptoms Cardiovascular: No Symptoms Gastrointestinal: No Symptoms Neurological: Gait Disturbance (unable to bend knee) Other: Reports: None - Physical Assessment NPO Status Date: 02/27/87 NPO Status Time: 20:30 Vital Signs: Last Vital Signs Temp 36.4 C 02/04/20 06:20 Pulse 70 02/04/20 06:20 Resp 16 02/04/20 06:20 BP 128/74 02/04/20 06:20 Pulse Ox 96 02/04/20 06:20 Height: 1.52 m Weight: 88.904 kg ASA Class: 2 Mental Status: Alert & Oriented x3 Airway Class: Mallampati = 1 Dentition: Reports: Normal Dentition Thyro-Mental Finger Breadths: 3 Mouth Opening Finger Breadths: 3 ROM/Head Extension: Full Lungs: Clear to Auscultation, Normal Respiratory Effort Cardiovascular: Regular Rate, Regular Rhythm - Lab Values: Laboratory Last Values MRSA (PCR) Negative 01/20/20 13:31 - Allergies Allergies/Adverse Reactions: Allergies Allergy/AdvReac Type Severity Reaction Status Date / Time aspirin AdvReac syncope/diz Verified 02/03/20 11:35 ziness - Blood Blood Available: No Product(s) Available: None - Anesthesia Plan Pre-Op Medication Ordered: None - Acknowledgements Anesthesia Type Planned: MAC Pt an Appropriate Candidate for the Planned Anesthesia: Yes Alternatives and Risks of Anesthesia Discussed w Pt/Guardian: Yes Pt/Guardian Understands and Agrees with Anesthesia Plan: Yes PreAnesthesia Questionnaire HEENT History: Reports: Impaired Vision, Other (See Below) Other HEENT History: wears glasses Cardiovascular History: Reports: None Respiratory History: Reports: None Genitourinary History: Reports: 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: Musculoskeletal History: Reports: Other (See Below) Other Musculoskeletal History: left knee meniscus tear Neurological History: Reports: None Psychiatric History: Reports: Depression Endocrine/Metabolic History: Reports: Obesity/BMI 30+ Hematologic History: Reports: Anemia Other Hematologic History: history of pernicious anemia 2008 Immunologic History: Reports: None Oncologic (Cancer) History: Reports: None Dermatologic History: Reports: None - Past Surgical History Head Surgeries/Procedures: Reports: None HEENT Surgical History: Reports: Tonsillectomy Cardiovascular Surgical History: Reports: None Respiratory Surgical History: Reports: None GI Surgical History: Reports: Bariatric Procedure, Colonoscopy Female Surgical History: Reports: Section, Hysterectomy Male Surgical History: Reports: None Endocrine Surgical History: Reports: None Neurological Surgical History: Reports: None Musculoskeletal Surgical History: Reports: Arthroscopic Knee, Carpal Tunnel, Knee Replacement Other Musculoskeletal Surgeries/Procedures:: right elbow surgery, left achilles tendon repair, left meniscus repair x 2, bilateral carpal tunnel release Oncologic Surgical History: Reports: None Dermatological Surgical History: Reports: None - SUBSTANCE USE Smoking Status *Q: Never Smoker Recreational Drug Use History: No - HOME MEDS Home Medications: Home Meds Escitalopram [Lexapro] 20 mg PO DAILY 10/31/15 [History] Lactobacillus Acidophilus [Acidophilus] 1 tab PO DAILY 10/31/15 [History] Loratadine [Claritin] 1 tab PO DAILY 10/31/15 [History] Omeprazole 20 mg PO DAILY 10/31/15 [History] busPIRone [Buspar] 15 mg PO BID 10/31/15 [History] Vitamin B Complex [B Complex] 1 tab PO DAILY 12/23/19 [History] Cyclobenzaprine [Flexeril] 10 mg PO BID PRN #40 tablet 12/25/19 [Rx] Multivit,Calc,Mins/Iron/Folic [Women's Daily Formula Caplet] 1 tab PO DAILY 03/21 [History] oxyCODONE 5 - 10 mg PO Q6H PRN #20 tab 02/04/20 [Rx] - CURRENT (IN HOUSE) MEDS Current Meds: Current Medications Lactated Ringer's (Ringers, Lactated) 1,000 mls @ 125 mls/hr IV ASDIRECTED ROBBY Stop: 02/04/20 23:00 Last Admin: 02/04/20 06:42 Dose: 125 mls/hr Lidocaine/Sodium Bicarbonate (Buffered Lidocaine 1% In Ns 8.4%) 0.25 ml IDERM ONETIME PRN PRN Reason: Prior to IV Start Stop: 02/04/20 18:00 Last Admin: 02/04/20 06:42 Dose: 0.25 ml Sodium Chloride (Saline Flush) 10 ml FLUSH ASDIRECTED PRN PRN Reason: Keep Vein Open Stop: 02/04/20 18:00 Discontinued Medications Fentanyl (Sublimaze) Confirm Administered Dose 100 mcg .ROUTE .STK-MED ONE Stop: 02/04/20 06:29 Fentanyl (Sublimaze) Confirm Administered Dose 100 mcg .ROUTE .STK-MED ONE Stop: 02/04/20 07:20 Lidocaine HCl (Xylocaine-Mpf 1%) Confirm Administered Dose 4 mls @ as directed .ROUTE .STK-MED ONE Stop: 02/04/20 06:30 Ketamine HCl (Ketalar) Confirm Administered Dose 500 mg .ROUTE .STK-MED ONE Stop: 02/04/20 06:33 Ketorolac Tromethamine (Toradol) Confirm Administered Dose 30 mg .ROUTE .STK- MED ONE Stop: 02/04/20 07:19 Midazolam HCl (Versed 1 Mg/Ml) Confirm Administered Dose 2 mg .ROUTE .STK-MED ONE Stop: 02/04/20 06:29 Propofol (Diprivan 20 Ml) Confirm Administered Dose 200 mg .ROUTE .STK-MED ONE Stop: 02/04/20 06:29
[2020-02-04] MEDS ORDERED: oxyCODONE 5 MG Tab PO PRN (07:49)
[2020-02-04] MEDS ORDERED: fentaNYL 100 MCG/2 ML SDV IVPUSH STA (07:54)
[2020-02-04 08:43] VITALS: BP 129/74; PULSE 69
--- NOTE | 2020-02-08 10:25 | PCM.OPNOTE ---
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
--- NOTE | 2020-02-08 10:39 | OR ---
DATE OF OPERATION: 02/04/2020 SURGEON: Juancarlos Philippe MD OPERATION PERFORMED: Left total knee manipulation under anesthesia. PREOPERATIVE DIAGNOSIS: Left total knee arthrofibrosis. POSTOPERATIVE DIAGNOSIS: Left total knee arthrofibrosis. ANESTHESIA: MAC sedation. ANESTHESIA PROVIDER: Surinder Babcock CRNA ESTIMATED BLOOD LOSS: Not applicable. COMPLICATIONS: None. CONDITION: Stable. DESCRIPTION OF PROCEDURE: The patient was identified in the preoperative holding area where the proper site was marked and identified by the surgeon. The patient was taken back to the operative theater where, after adequate anesthesia, a time-out was performed. Pre-manipulation motion was then measured. The patient had measured 2 to 40 degrees with a hard stop. After manipulation, the patient had 1 to 130 degrees. It was stable throughout range of motion. No other signs of issues. The patient at this time was recovered from anesthesia, sent to the PACU in stable condition, and tolerated the procedure well. MMANJALI /[id number]
== END 2020-02-04 08:40 | disposition home or self-care (01) ==
LOC: JD.SDS 06:17
PROVIDERS: ATTEND Orthopaedic Surgery
DX: M24.662 Ankylosis, left knee (principal); E66.9 Obesity, unspecified; Z68.38 Body mass index [BMI] 38.0-38.9, adult; Z88.6 Allergy status to analgesic agent; Z79.1 Long term (current) use of non-steroidal anti-inflammatories (NSAID); Z96.652 Presence of left artificial knee joint
CPT/HCPCS: 27570; 87641; A9270; J1885; J2001; J2250; J2704; J3010; J7120; 01380

== ENCOUNTER → 2021-11-16 | Day surgery (SDC) | payer MEDICAID ==
--- NOTE | 2021-11-14 08:54 | PCM.SN.2 ---
- Free Text/Narrative Note: Right selective femoral nerve block at the adductor canal for post-procedure pain control under US guidance requested by Dr. Philippe. Time Out: 1141 Start: 1141 End: 1150 Chart reviewed. Consent signed. Questions answered. Appropriate monitors applied. Time out performed. Right mid-shaft femur identified with ultrasound, scanning medially of femur, the femoral artery in the adductor canal visualized, and the femoral nerve located laterally to the artery. The skin was prepped lateral to the ultrasound probe with chlorahexadine times two. The 21ga 4 insulated block needle was inserted under direct ultrasound guidance into the adductor canal. 25mL of 0.5% ropivacaine with 1:200,000 epinephrine was injected circumferentially around the nerve with intermittent negative aspiration noted. Patient tolerated the procedure well. Sterile technique noted along with sterile gloves, mask, and sterile probe cover. See picture on progress note and vital signs on nurses notes. Block completed in PACU. Thank you, Angely Laboy CRNA
--- NOTE | 2021-11-14 12:08 | PCM.PREANE ---
<Mariluz Osorio - Last Filed: 11/16/21 07:32> Preanesthetic Assessment - Anesthesia/Transfusion/Family Hx Anesthesia History: Prior Anesthesia Without Reaction Family History of Anesthesia Reaction: No Transfusion History: Prior Transfusion Without Reaction Intubation History: Unknown - Review of Systems General: No Symptoms Pulmonary: No Symptoms Cardiovascular: No Symptoms, Palpitations, Dyspnea on Exertion (Has not had in a long time) Gastrointestinal: No Symptoms, Constipation Neurological: Headache (Migraines-none today) Other: Reports: Sinus Problem, Depression, Anxiety - Physical Assessment NPO Status Date: 11/15/21 NPO Status Time: 21:00 Height: 1.52 m Weight: 103.3 kg ASA Class: 3 Mental Status: Alert & Oriented x3 Dentition: Reports: [place](s), Missing Tooth/Teeth, Caries Thyro-Mental Finger Breadths: 2 Mouth Opening Finger Breadths: 3 ROM/Head Extension: Full Lungs: Clear to Auscultation, Normal Respiratory Effort Cardiovascular: Regular Rate, Regular Rhythm, No Murmurs - Allergies Allergies/Adverse Reactions: Allergies Allergy/AdvReac Type Severity Reaction Status Date / Time aspirin AdvReac syncope/diz Verified 02/03/20 11:35 ziness - Anesthesia Plan Pre-Op Medication Ordered: Other (Preoperative oral pain meds (lyrica, tylenol, oxycontin) ) - Acknowledgements Anesthesia Type Planned: Spinal, Regional Block Pt an Appropriate Candidate for the Planned Anesthesia: Yes Alternatives and Risks of Anesthesia Discussed w Pt/Guardian: Yes Pt/Guardian Understands and Agrees with Anesthesia Plan: Yes PreAnesthesia Questionnaire HEENT History: Reports: Allergic Rhinitis, Impaired Vision, Other (See Below) Cardiovascular History: Reports: None Respiratory History: Reports: None Gastrointestinal History: Reports: GERD (well controlled with prilosec) Genitourinary History: Reports: None 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 Musculoskeletal History: Reports: Arthritis, Other (See Below) Neurological History: Reports: Migraines (ocassional) Psychiatric History: Reports: Anxiety, Depression Endocrine/Metabolic History: Reports: Obesity/BMI 30+ Hematologic History: Reports: Anemia Other Hematologic History: hx of pernicious anemia 2009 Immunologic History: Reports: None Oncologic (Cancer) History: Reports: None Dermatologic History: Reports: None - Past Surgical History Head Surgeries/Procedures: Reports: None HEENT Surgical History: Reports: Tonsillectomy Cardiovascular Surgical History: Reports: None Respiratory Surgical History: Reports: None GI Surgical History: Reports: Bariatric Procedure (gastric bypass), Colonoscopy Female Surgical History: Reports: Section (x4), Hysterectomy Male Surgical History: Reports: None Endocrine Surgical History: Reports: None Neurological Surgical History: Reports: None Musculoskeletal Surgical History: Reports: Arthroscopic Knee, Carpal Tunnel, Knee Replacement Oncologic Surgical History: Reports: None Dermatological Surgical History: Reports: None - SUBSTANCE USE Tobacco Use Status *Q: Former Tobacco User Tobacco Use Within Last Twelve Months: No Second Hand Smoke Exposure: No Days Per Week of Alcohol Use: 0 Number of Drinks Per Day: 0 Total Drinks Per Week: 0 Recreational Drug Use History: No - HOME MEDS Home Medications: Home Meds Escitalopram [Lexapro] 20 mg PO DAILY 10/31/15 [History] Lactobacillus Acidophilus [Acidophilus] 1 tab PO DAILY 10/31/15 [History] Loratadine [Claritin] 1 tab PO DAILY 10/31/15 [History] Omeprazole 20 mg PO DAILY 10/31/15 [History] busPIRone [Buspar] 15 mg PO BID 10/31/15 [History] Vitamin B Complex [B Complex] 1 tab PO DAILY 12/23/19 [History] Multivit,Calc,Mins/Iron/Folic [Women's Daily Formula Caplet] 1 tab PO DAILY 02/03/20 [History] Cyclobenzaprine [Flexeril] 10 mg PO BID PRN #20 tablet 11/15/21 [Rx] Rivaroxaban [Xarelto] 10 mg PO DAILY #30 tab 11/15/21 [Rx] oxyCODONE 5 - 10 mg PO Q4H PRN #40 tab 11/15/21 [Rx] <Angely Laboy - Last Filed: 11/16/21 08:17> Preanesthetic Assessment - Procedure Proposed Procedure: Right Total Knee Arthroplasty - Anesthesia/Transfusion/Family Hx Anesthesia History: Prior Anesthesia Without Reaction Family History of Anesthesia Reaction: No Transfusion History: Prior Transfusion Without Reaction Intubation History: Unknown - Review of Systems Cardiovascular: No Symptoms (Elevated cholesterol), Palpitations (with anxiety attacks.), Dyspnea on Exertion Gastrointestinal: No Symptoms (GERD/ History of gastric bypass surgery), Constipation Neurological: Headache (Migraines) Other: Reports: Sinus Problem (seasonal allergies), Depression, Anxiety - Physical Assessment NPO Status Date: 11/15/21 Vital Signs: HR: 59 Sat: 97% Temp: 97.8 B/P: 104/63 Resp: 16 Height: 1.55 m ASA Class: 3 Mental Status: Alert & Oriented x3 - Lab Values: All labs reviewed and noted and within acceptable ranges to proceed with scheduled procedure. - Imaging/EKG Impressions: EKG: SR rate= 51 CXR: negative - Anesthesia Plan Pre-Op Medication Ordered: Other (Preoperative oral pain meds (lyrica, tylenol, oxycontin) @ 0810) - Acknowledgements Anesthesia Type Planned: Spinal (With Right Adductor Canal Block under US guidance for post operative pain control requested by Dr. 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: Musculoskeletal History: Reports: Other (See Below) Other Musculoskeletal History: left knee meniscus tear Neurological History: Reports: None Psychiatric History: Reports: Depression Endocrine/Metabolic History: Reports: Obesity/BMI 30+ Hematologic History: Reports: Anemia Other Hematologic History: history of pernicious anemia 2008 Immunologic History: Reports: None Oncologic (Cancer) History: Reports: None Dermatologic History: Reports: None - Past Surgical History Head Surgeries/Procedures: Reports: None HEENT Surgical History: Reports: Tonsillectomy Cardiovascular Surgical History: Reports: None Respiratory Surgical History: Reports: None GI Surgical History: Reports: Bariatric Procedure, Colonoscopy Female Surgical History: Reports: Section, Hysterectomy Male Surgical History: Reports: None Endocrine Surgical History: Reports: None Neurological Surgical History: Reports: None Musculoskeletal Surgical History: Reports: Arthroscopic Knee, Carpal Tunnel, Knee Replacement Other Musculoskeletal Surgeries/Procedures:: right elbow surgery, left achilles tendon repair, left meniscus repair x 2, bilateral carpal tunnel release Oncologic Surgical History: Reports: None Dermatological Surgical History: Reports: None - CURRENT (IN HOUSE) MEDS Current Meds: Current Medications Acetaminophen (Acetaminophen 325 Mg Tab) 975 mg PO ONETIME ROBBY Stop: 11/16/21 18:00 Morphine Sulfate 8 mg/Epinephrine HCl 0.3 mg/Cefuroxime Sodium 750 mg/Sodium Chloride 7.9 ml 0 mg .XX ASDIRECTED PRN PRN Reason: Pain Stop: 11/16/21 16:00 Lactated Ringer's (Ringers, Lactated) 1,000 mls @ 125 mls/hr IV ASDIRECTED ROBBY Stop: 11/16/21 23:00 Lidocaine/Sodium Bicarbonate (Lidocaine 1%/Sod Bicarbonate In Ns 8.4% 1 Ml Syringe) 0.25 ml IDERM ONETIME PRN PRN Reason: Prior to IV Start Stop: 11/16/21 18:00 Oxycodone HCl (Oxycodone Er 10 Mg Tab.Er) 10 mg PO ONETIME ROBBY Stop: 11/16/21 18:00 Pregabalin (Pregabalin 25 Mg Cap) 50 mg PO ONETIME ROBBY Stop: 11/16/21 18:00 Sodium Chloride (Sodium Chloride 0.9% 10 Ml Syringe) 10 ml FLUSH ASDIRECTED PRN PRN Reason: Keep Vein Open Stop: 11/16/21 18:00 Discontinued Medications Tranexamic Acid (Tranexamic Acid 1,000 Mg/10 Ml Amp) Confirm Administered Dose 1,000 mg .ROUTE .STK-MED ONE Stop: 11/16/21 07:09 Vancomycin HCl (Vancomycin 1 Gm Sdv) Confirm Administered Dose 1 gm .ROUTE .STK- MED ONE Stop: 11/16/21 07:09
[~2021-11-16] MED LIST changes: +Acetaminophen 325 MG Tab PO SCH; +Cyclobenzaprine 10 MG Tab PO PRN; +EPINEPHrine 1 MG/ML SDV ONE; +HYDROmorphone 0.5 MG/0.5 ML Syringe IVPUSH PRN; +HYDROmorphone 0.5 MG/0.5 ML Syringe ONE; +Ketamine 500 mg/10 ML MDV ONE; +Lactated Ringers 1,000 ML ONE; +Midazolam 1 MG/ML 2 ML SDV IVPUSH PRN; +Midazolam 1 MG/ML 2 ML SDV ONE; +Morphine 8 MG, EPINEPHrine 0.3 MG, Cefuroxime 750 MG, Sodium Chloride 0.9% 7.9 ML PRN; +Ondansetron 4 MG/2 ML SDV IVPUSH PRN; +Ondansetron 4 MG/2 ML SDV ONE; +Pregabalin 25 MG Cap PO SCH; +Propofol 200 MG/20 ML SDV ONE; +Ropivacaine 0.5% 5 MG/ML 30 ML SDV ONE; +Vancomycin 1 GM SDV ONE; +ceFAZolin 1 GM Vial ONE; +diphenhydrAMINE 50 MG/ML SDV IVPUSH PRN; +ePHEDrine 50 MG/ML SDV IVPUSH PRN; +ePHEDrine 50 MG/ML SDV ONE; +fentaNYL 100 MCG/2 ML SDV ONE; +oxyCODONE 5 MG Tab PO ONE; +oxyCODONE ER 10 MG TAB.ER PO SCH
[2021-11-16] MEDS: fentaNYL 100 MCG/2 ML SDV IVPUSH PRN ×2 (11:51→12:05)
--- NOTE | 2021-11-16 11:57 | PCM.POSTAN ---
POST ANESTHESIA ASSESSMENT - MENTAL STATUS Mental Status: Alert - VITAL SIGNS Vital Signs: Last Vital Signs Temp 98.5 11/16/21 1138 Pulse 86 11/16/21 1138 Resp 14 11/16/21 1138 BP 127/63 11/16/21 1138 Pulse Ox 100% 11/16/21 1138 - RESPIRATORY Respiratory Status: Respiratory Rate WNL, Airway Patent, O2 Saturation Stable, Supplemental Oxygen - CARDIOVASCULAR CV Status: Pulse Rate WNL, Blood Pressure Stable - GASTROINTESTINAL GI Status: No Symptoms - POST OP HYDRATION Hydration Status: Adequate & Stable
--- NOTE | 2021-11-16 12:26 | CR ---
Right knee: AP and crosstable lateral views of the right knee were obtained. Comparison: Prior knee CT of 11/01/21. Knee prosthesis is noted. Patellar prosthesis is seen. Components are aligned. Underlying bony structures show nothing acute. Soft tissue air is seen. Impression: 1. Satisfactory postoperative radiographic appearance of recently placed right knee prostheses. Diagnostic code #2
--- NOTE | 2021-11-16 13:47 | PCM48HPAN ---
Post Anesthesia Note - EVALUATION WITHIN 48HRS OF ANESTHETIC Vital Signs in Normal Range: Yes Patient Participated in Evaluation: Yes Respiratory Function Stable: Yes Airway Patent: Yes Cardiovascular Function Stable: Yes Hydration Status Stable: Yes Pain Control Satisfactory: Yes Nausea and Vomiting Control Satisfactory: Yes Mental Status Recovered: Yes Vital Signs: Last Vital Signs Temp 36.7 C 11/16/21 13:00 Pulse 74 11/16/21 13:00 Resp 17 11/16/21 13:00 BP 157/70 H 11/16/21 13:00 Pulse Ox 100 11/16/21 13:00
[2021-11-17 10:59] VITALS: BP 112/60; PULSE 75
--- NOTE | 2021-12-07 07:58 | PCM.OPNOTE ---
- General Post-Op/Procedure Note Date of Surgery/Procedure: 11/16/21 Operative Procedure(s): right total knee arthroplasty with suzanna alfredo robotics Pre Op Diagnosis: right knee osteoarthrosis Post-Op Diagnosis: Same Anesthesia Technique: Local, MAC, Spinal Primary Surgeon: Juancarlos Philippe Anesthesia Provider: Angely Laboy Hemodialysis Charge Nurse: Gisselle De Luna Hemodialysis Charge Nurse: Debora Graham EBL in mLs: 5 Complications: None Condition: Good Free Text/Narrative:: 02/01 10mm 29x9
--- NOTE | 2021-12-07 08:21 | OR ---
DATE OF OPERATION: 11/16/2021 SURGEON: Juancarlos Philippe MD OPERATION PERFORMED: Right total knee arthroplasty with Clayton Karel robotics. PREOPERATIVE DIAGNOSIS: Right knee osteoarthrosis. POSTOPERATIVE DIAGNOSIS: Right knee osteoarthrosis. ANESTHESIA: Local MAC with spinal. ANESTHESIA PROVIDER: Angely Laboy CRNA. JANITORIAL ASSISTANT: Gisselle De Luna PA-C; and Debora Graham LPN. ESTIMATED BLOOD LOSS: 5 mL. COMPLICATIONS: None. CONDITION: Stable. IMPLANTS: 1. Clayton size 3 cemented PS femur. 2. Maegan size 3 cemented [place] tibial baseplate. 3. Clayton size 3 10 mm PS X3 polyethylene. 4. Clayton size 29 x 9 mm cemented asymmetric patella. DESCRIPTION OF PROCEDURE: The patient was identified in the preop holding area. Proper site was marked and identified by the surgeon. The patient was taken back to the operating theater where after adequate anesthesia, the patient's right lower extremity had a nonsterile tourniquet applied and it was sterilely prepped and draped in the usual sterile fashion. OR time-out was performed. The patient received 2 g IV Ancef. Leg ballesteros was then applied to the right lower extremity. At this time, the right lower extremity was exsanguinated. Tourniquet was insufflated to 250 mmHg . Standard anterior incision was made. Medial parapatellar arthrotomy was created. Deep fibers of the MCL were raised as well as anterior fat pad was resected. Attention was turned to the patella. Patella measured a 21 mm; it was resected to 13 mm for a 29 x 9 mm patella. Drill holes were then drilled. Attention was then turned to the femur. Two 4.0 pins were placed intra-incisionally for the Maegan Karel robotic array and then 2 more were placed on the tibia 3 fingerbreadths below the tibial tubercle. The Maegan Karel robotic arrays were placed on both the femur and the tibia then at this time as well as checkpoints on the femur and tibia. Hip center rotation was then obtained. The medial and lateral malleoli were marked. At this time, 40 points were obtained off the femur and the tibia for the Maegan Karel robotic plan. The patient's knee was brought to full extension. Varus and valgus stresses were applied and then into 90 degrees of flexion with a curved osteotome. Varus and valgus stresses were applied. At this time, e-SENS robotic plan was done to 20 mm gaps in both flexion and extension. Clayton Mako robotic arm was then brought in. A straight saw blade was then used for the tibial cut, the anterior femoral cut, the anterior chamfer cut, and the posterior femoral cut. All bony fragments were removed. Saw blade was then switched out and the distal femoral cut as well as the posterior chamfer cut was completed. At this time, medial and lateral menisci were resected as well as any posterior osteophytes. A size 3 mm trial tibia was then placed, size 3 mm trial femur was placed, and a size 3 10 mm PS X3 polyethylene trial liner was placed. The patient's knee was brought to full extension and flexion. Varus and valgus stresses were applied, was found to be stable with no instability. No signs of liftoff or loosening were noted. At this time, box cut was completed on the femur. The pins were removed from the femur and the tibia as well as the arrays and the checkpoints. Cement was mixed on the back table. All cut surfaces were irrigated with pulse lavage irrigation with Ancef and then completely dried. Once the cement was ready, the Clayton size 3 mm cemented [place] tibial base plate having been previously stamped and drilled, was then cemented in place on the tibia. The Clayton size 3 mm cemented femur was cemented into place. The patient had a Maegan size 3 10 mm PS X3 polyethylene insert placed. The patient's knee was brought to full extension. Excess cement was removed. A Maegan size 29 x 9 mm cemented asymmetric patella was then cemented into place. 1 L of pulse lavage irrigation with Ancef was irrigated through the knee along with 400 mL of IrriSept irrigation. Periarticular injection was completed. Topical tranexamic acid and vancomycin powder were applied. A #2 barbed suture was used for closure of the medial parapatellar arthrotomy in flexion. 2-0 Vicryl and Stratafix were used for subcutaneous closure. Prineo was used for cutaneous closure. The patient had a sterile soft dressing applied. The tibial holes were closed with nylon, and this was also covered with a sterile soft dressing. The patient had an TASNEEM wrap applied and was sent to PACU in stable condition. The patient tolerated the procedure well. MMANJALI /[id number]
== END | disposition home or self-care (01) ==
LOC: JD.SDS 07:22
PROVIDERS: ATTEND Orthopaedic Surgery
DX: M17.11 Unilateral primary osteoarthritis, right knee (principal); E78.00 Pure hypercholesterolemia, unspecified; E66.9 Obesity, unspecified; G89.18 Other acute postprocedural pain; K21.9 Gastro-esophageal reflux disease without esophagitis; G43.909 Migraine, unspecified, not intractable, without status migrainosus; Z79.899 Other long term (current) drug therapy; Z88.8 Allergy status to other drugs, medicaments and biological substances; Z98.890 Other specified postprocedural states; Z68.41 Body mass index [BMI] 40.0-44.9, adult
CPT/HCPCS: 27447; 73560; 97116; 97161; A9270; C1713; C1776; J0171; J0690; J0697; J1170; J2250; J2270; J2405; J2704; J2795; J3010; J3370; J7120; 01402; 64450; 76942

== ENCOUNTER 2022-01-10 06:09 | Day surgery (SDC) | payer MEDICAID ==
[~2022-01-10 06:09] MED LIST changes: -Acetaminophen 325 MG Tab PO SCH; -Cyclobenzaprine 10 MG Tab PO PRN; -EPINEPHrine 1 MG/ML SDV ONE; -HYDROmorphone 0.5 MG/0.5 ML Syringe IVPUSH PRN; -HYDROmorphone 0.5 MG/0.5 ML Syringe ONE; -Ketamine 500 mg/10 ML MDV ONE; -Lactated Ringers 1,000 ML ONE; -Midazolam 1 MG/ML 2 ML SDV IVPUSH PRN; -Midazolam 1 MG/ML 2 ML SDV ONE; -Morphine 8 MG, EPINEPHrine 0.3 MG, Cefuroxime 750 MG, Sodium Chloride 0.9% 7.9 ML PRN; -Ondansetron 4 MG/2 ML SDV IVPUSH PRN; -Ondansetron 4 MG/2 ML SDV ONE; -Pregabalin 25 MG Cap PO SCH; -Propofol 200 MG/20 ML SDV ONE; -Ropivacaine 0.5% 5 MG/ML 30 ML SDV ONE; +Sodium Chloride 0.9% 10 ML Syringe FLUSH SCH; -Vancomycin 1 GM SDV ONE; -ceFAZolin 1 GM Vial ONE; -diphenhydrAMINE 50 MG/ML SDV IVPUSH PRN; -ePHEDrine 50 MG/ML SDV IVPUSH PRN; -ePHEDrine 50 MG/ML SDV ONE; -fentaNYL 100 MCG/2 ML SDV ONE; -oxyCODONE 5 MG Tab PO ONE; -oxyCODONE ER 10 MG TAB.ER PO SCH
[2022-01-10] MEDS ORDERED: Propofol 200 MG/20 ML SDV ONE (06:41)
[2022-01-10] MEDS ORDERED: fentaNYL 100 MCG/2 ML SDV ONE (06:43)
[2022-01-10] MEDS ORDERED: Midazolam 1 MG/ML 2 ML SDV ONE (06:43)
[2022-01-10] MEDS ORDERED: Lidocaine 1% 4 ML ONE (06:43)
[2022-01-10] MEDS ORDERED: oxyCODONE 5 MG Tab PO ONE (08:30)
[2022-01-10 09:21] VITALS: BP 131/77; PULSE 70
== END 2022-01-10 09:15 | disposition home or self-care (01) ==
LOC: JD.SDS 06:09
PROVIDERS: ATTEND Orthopaedic Surgery
DX: T84.82XA Fibrosis due to internal orthopedic prosthetic devices, implants and grafts, initial encounter (principal); F41.9 Anxiety disorder, unspecified; F32.A Depression, unspecified; E66.9 Obesity, unspecified; Z98.890 Other specified postprocedural states; Z79.899 Other long term (current) drug therapy; Z88.8 Allergy status to other drugs, medicaments and biological substances; Z68.41 Body mass index [BMI] 40.0-44.9, adult
CPT/HCPCS: 27599; A9270; J2250; J2704; J3010; J7120; 01380

== ENCOUNTER 2023-05-15 08:08 | Day surgery (SDC) | payer MEDICAID ==
[~2023-05-15 08:08] MED LIST changes: -Lidocaine 1%/Sod Bicarbonate in NS 8.4% 1 ML Syringe IDERM PRN
[2023-05-15] MEDS ORDERED: Bupivacaine 0.25% 10 ML SDV ONE (08:27)
[2023-05-15] MEDS ORDERED: Ondansetron 4 MG/2 ML SDV IVPUSH PRN (08:50)
[2023-05-15] MEDS ORDERED: fentaNYL 100 MCG/2 ML SDV IVPUSH PRN (08:50)
[2023-05-15] MEDS ORDERED: Midazolam 1 MG/ML 2 ML SDV ONE (08:54)
[2023-05-15] MEDS ORDERED: fentaNYL 100 MCG/2 ML SDV ONE (08:55)
[2023-05-15] MEDS ORDERED: Propofol 200 MG/20 ML SDV ONE ×2 (08:56→09:19)
[2023-05-15] MEDS ORDERED: ceFAZolin 2 GM Vial ONE (09:17)
[2023-05-15] MEDS ORDERED: Lidocaine 1% 2 ML ONE (09:17)
[2023-05-15] MEDS ORDERED: Ondansetron 4 MG/2 ML SDV ONE (09:18)
[2023-05-15] MEDS ORDERED: Dexamethasone 4 MG/ML 5 ML MDV ONE (09:18)
[2023-05-15] MEDS ORDERED: Ketorolac 30 MG/ML SDV ONE (09:46)
[2023-05-15] MEDS: HYDROmorphone 0.5 MG/0.5 ML Syringe IVPUSH PRN ×2 (10:38→11:00)
[2023-05-15 13:14] VITALS: BP 116/70; PULSE 56
== END 2023-05-15 12:45 | disposition home or self-care (01) ==
LOC: JD.SDS 08:08
PROVIDERS: ATTEND Orthopaedic Surgery
DX: M18.12 Unilateral primary osteoarthritis of first carpometacarpal joint, left hand (principal); G89.29 Other chronic pain; N32.81 Overactive bladder; H61.23 Impacted cerumen, bilateral; K21.9 Gastro-esophageal reflux disease without esophagitis; F41.9 Anxiety disorder, unspecified; F32.A Depression, unspecified; E66.9 Obesity, unspecified; Z90.710 Acquired absence of both cervix and uterus; Z96.653 Presence of artificial knee joint, bilateral; Z79.899 Other long term (current) drug therapy; Z88.8 Allergy status to other drugs, medicaments and biological substances
CPT/HCPCS: 25447; 76000; C1713; J0690; J1100; J1170; J1885; J2250; J2405; J2704; J3010; J3490; J7120; 01830

== ENCOUNTER → 2024-11-18 | Day surgery (SDC) | payer MEDICAID ==
[~2024-11-18] MED LIST changes: +Bupivacaine 0.25% 10 ML SDV ONE; +Citric Acid/Sodium Citrate Solution 30 ML Cup PO ONE; +Famotidine 20 MG/2 ML SDV IVPUSH ONE; -Lactated Ringers 1,000 ML IV SCH; +Midazolam 1 MG/ML 2 ML SDV ONE; +Propofol 200 MG/20 ML SDV ONE; +Ropivacaine 0.5% 5 MG/ML 30 ML SDV ONE; +ceFAZolin 2 GM Vial ONE; +dexmedeTOMIDine HCl 200 MCG/2 ML SDV ONE; +fentaNYL 100 MCG/2 ML SDV ONE; +oxyCODONE 5 MG Tab PO PRN
[2024-11-18] MEDS: Lactated Ringers 1,000 ML IV SCH (13:07)
[2024-11-18 17:22] VITALS: BP 145/85; PULSE 57
== END | disposition home or self-care (01) ==
LOC: JD.SDS 11:02
PROVIDERS: ATTEND Orthopaedic Surgery
DX: M18.11 Unilateral primary osteoarthritis of first carpometacarpal joint, right hand (principal); E78.00 Pure hypercholesterolemia, unspecified; F41.9 Anxiety disorder, unspecified; F32.A Depression, unspecified; E66.9 Obesity, unspecified; Z68.42 Body mass index [BMI] 45.0-49.9, adult; Z79.899 Other long term (current) drug therapy
CPT/HCPCS: 25447; 76000; J0665; J0690; J2250; J2704; J2795; J3010; J3490; J7120